=== PATIENT | female | born 1945 | race Asian ===

== ENCOUNTER 2018-09-08 20:43 | Inpatient (IN) | payer MEDICAID, OTHER ==
[~2018-09-08] VITALS: Ht 165.1 cm; Wt 68.5 kg
--- NOTE | 2018-09-08 20:44 | NUR ---
ED Nurse Note: Pt BIBA for episode of syncope that occured at [facility]. Pt upon arrive is A/Ox4 and shakey. VSS. Currently showing no signs of acute distress. Pt states she was walking with family when she began to feel extremely tired and weak, pt sat down for a few minutes and then began to feel episode of syncope. Pt presented with LAC20g, patent and asymptomatic.
[2018-09-08 20:45] VITALS: BP 151/63
[2018-09-08] MEDS ORDERED: LORazepam Inj 2mg/ml 1ml IV ONE (21:00)
[2018-09-08] MEDS ORDERED: Isovue-370 150ml vial INJ PRN (21:00)
--- NOTE | 2018-09-08 21:04 | Emergency Room Report ---
History of Present Illness General Chief Complaint: Syncope Source: Patient Present Illness HPI Patient presents post syncope. Apparently she was walking and started having back pain felt shaky and then started having back of her neck and headache. After that she felt dizzy and felt like she is going to pass out. She did pass out but didn't injure herself is people later down. EMS found her with glucose of 190 and a normal EKG. The patient has a history of diabetes, hypertension and is status post stent placement. She is on Plavix at this time. She's never passed out. She's never had back pain or headache like she does now. She denies fevers or chills. There's no nausea or vomiting. The back pain is somewhat better at this time. Tender upper back. Is not radiating. Patient's stroke screen was negative by the paramedics. She feels thirsty and also shaky at this time. There is no numbness or unilateral weakness. She denies dysuria. Pain denied to punch box tender, but reported to me - mid back and 6/10, aching, somewhat positional, radiating to R posterior neck. The patient complains of bilateral knee pain. It's worse on the right-hand side. She has a little bit of swelling in her lower legs it's worse on the right. She denies any calf pain. She denies having previous clots. PTCA DM HTN Hypercholesterolemia Allergies: Coded Allergies: No Known Allergies (Unverified , 09/08/18) Patient History Past Medical History: see triage record Past Surgical History: PTCA Social History: Denies: smoking, alcohol use, drug use Social History Narrative with daughter Now: No Reviewed Nursing Documentation: PMH: Agreed; PSxH: Agreed Nursing Documentation-PMH Hx Asthma: Yes Hx Diabetes: Yes Hx Cerebrovascular Accident: Yes - CAD and stent at 2007 Review of Systems All Other Systems: negative except mentioned in HPI Physical Exam Vital Signs Date Time Temp Pulse Resp B/P (MAP) Pulse Ox O2 Delivery O2 Flow Rate FiO2 09/08/18 20:44 97.9 93 19 90 Room Air Sp02 EP Interpretation: reviewed, abnormal - Interpreted as low by me General Appearance: well appearing, no apparent distress, GCS 15 Head: normocephalic, atraumatic Eyes: bilateral eye normal inspection, bilateral eye PERRL, bilateral eye EOMI ENT: moist mucus membranes Neck: supple Respiratory: lungs clear, normal breath sounds Cardiovascular #1: regular rate, rhythm Cardiovascular #2: 2+ radial (R) Gastrointestinal: normal inspection, normal bowel sounds, non tender, no mass, non-distended Musculoskeletal: back normal, normal range of motion Neurologic: alert, oriented x3, motor strength/tone normal, DTRs symmetric, sensory intact, cerebellar normal, speech normal, grossly normal Psychiatric: anxious Skin: normal inspection, warm/dry Medical Decision Making Diagnostic Impression: Primary Impression: Syncope Qualified Codes: R55 - Syncope and collapse Additional Impressions: Back pain Qualified Codes: M54.6 - Pain in thoracic spine Renal failure Qualified Codes: N17.9 - Acute kidney failure, unspecified Dehydration ER Course Patient presents post syncopal episode after starting off with back pain. I differential includes acute myocardial infarction, acute coronary syndrome, arrhythmia, aneurysm, vasovagal episode, pulmonary embolus, hypoglycemia amongst others. Patient will be evaluated with EKG, chest x-ray, CT angiogram of chest and abdomen and CT of the head and labs. The patient will be treated with gentle IV hydration and given a small dose of Ativan. EKG no injury. CXR, normal mediastinum. Renal failure (states has had problems with kidneys in the past - not know creatinine). No pain at this time. Equal pulses radial and femoral. No bruit abdomen. Will hold off on CTAs due to renal function. CT head pending. Consider ultrasound abdomen and venous plethysmography. Improved with treatment, pain resolved. Still needs telemetry observation and work up for possible PE or aneurism (though clinically low probability). Relative hypoxia of concern though not tachycardic. Admit telemetry Dr. Wing. Laboratory Tests Test 09/08/18 21:27 White Blood Count 9.9 K/UL (4.8-10.8) Red Blood Count 4.35 M/UL (4.20-5.40) Hemoglobin 12.1 G/DL (12.0-16.0) Hematocrit 35.8 % (37.0-47.0) L Mean Corpuscular Volume 82 FL (80-99) Mean Corpuscular Hemoglobin 27.9 PG (27.0-31.0) Mean Corpuscular Hemoglobin Concent 33.9 G/DL (32.0-36.0) Red Cell Distribution Width 12.5 % (11.6-14.8) Platelet Count 256 K/UL (150-450) Mean Platelet Volume 6.8 FL (6.5-10.1) Neutrophils (%) (Auto) 69.0 % (45.0-75.0) Lymphocytes (%) (Auto) 21.5 % (20.0-45.0) Monocytes (%) (Auto) 6.5 % (1.0-10.0) Eosinophils (%) (Auto) 1.9 % (0.0-3.0) Basophils (%) (Auto) 1.1 % (0.0-2.0) Prothrombin Time 10.1 SEC (9.30-11.50) Prothrombin Time INR 1.0 (0.9-1.1) PTT 26 SEC (23-33) Sodium Level 136 MMOL/L (136-145) Potassium Level 3.9 MMOL/L (3.5-5.1) Chloride Level 100 MMOL/L (98-107) Carbon Dioxide Level 25 MMOL/L (21-32) Anion Gap 12 mmol/L (5-15) Blood Urea Nitrogen 42 mg/dL (7-18) H Creatinine 2.1 MG/DL (0.55-1.30) H Estimate Glomerular Filtration Rate mL/min (>60) Glucose Level 234 MG/DL (74-106) H Calcium Level 8.6 MG/DL (8.5-10.1) Total Bilirubin 0.3 MG/DL (0.2-1.0) Aspartate Amino Transferase (AST) 17 U/L (15-37) Alanine Aminotransferase (ALT) 31 U/L (12-78) Alkaline Phosphatase 113 U/L (46-116) Total Creatine Kinase 109 U/L (26-308) Troponin I 0.000 ng/mL (0.000-0.056) Pro-B-Type Natriuretic Peptide 380 pg/mL (0-125) H Total Protein 8.1 G/DL (6.4-8.2) Albumin 3.4 G/DL (3.4-5.0) Globulin 4.7 g/dL Albumin/Globulin Ratio 0.7 (1.0-2.7) L EKG Diagnostic Results Rate: normal Rhythm: NSR ST Segments: no acute changes Rhythm Strip Diag. Results EP Interpretation: yes Rhythm: NSR, no PVC's, no ectopy Chest X-Ray Diagnostic Results Chest X-Ray Diagnostic Results : Chest X-Ray Ordered: Yes # of Views/Limited/Complete: 1 View Indication: Other EP Interpretation: Yes Interpretation: no consolidation, no effusion, no pneumothorax, other - increased interstitial story and slight increased cor Impression: Other Electronically Signed by: Electronically signed by Jonathan Flores MD CT/MRI/US Diagnostic Results CT/MRI/US Diagnostic Results : Imaging Test Ordered: head Impression involutional changes Last Vital Signs Date Time Temp Pulse Resp B/P (MAP) Pulse Ox O2 Delivery O2 Flow Rate FiO2 09/09/18 17:22 82 122/84 09/09/18 16:00 98.2 20 95 09/09/18 09:00 Room Air Status: improved Disposition: ADMITTED INPATIENT Condition: Serious Jonathan Flores MD September 08, 2018 21:04
[2018-09-08] MEDS: Sodium Chloride 550 ML IV SCH (21:16)
[2018-09-08 22:08] LABS: BASOPHILS % (AUTO) 1.1 % (0.0-2.0); EOSINOPHILS % (AUTO) 1.9 % (0.0-3.0); HEMATOCRIT 35.8 % (37.0-47.0); HEMOGLOBIN 12.1 G/DL (12.0-16.0); LYMPHOCYTES % (AUTO) 21.5 % (20.0-45.0); MEAN CORPUSCULAR VOLUME 82 FL (80-99); MONOCYTES % (AUTO) 6.5 % (1.0-10.0); PLATELET COUNT 256 K/UL (150-450); RED BLOOD COUNT 4.35 M/UL (4.20-5.40); RED CELL DISTRIBUTION WIDTH 12.5 % (11.6-14.8); WHITE BLOOD COUNT 9.9 K/UL (4.8-10.8)
--- NOTE | 2018-09-08 22:30 | NUR ---
ED Nurse Note: Pt resting comfortably. Showing no signs of acute distress. Son @ bedside.
[2018-09-08 22:40] LABS: ANION GAP 12 mmol/L (5-15); BLOOD UREA NITROGEN 42 mg/dL (7-18); CALCIUM 8.6 MG/DL (8.5-10.1); CARBON DIOXIDE 25 MMOL/L (21-32); CHLORIDE 100 MMOL/L (98-107); CREATININE 2.1 MG/DL (0.55-1.30); POTASSIUM 3.9 MMOL/L (3.5-5.1); SODIUM 136 MMOL/L (136-145)
[2018-09-08 22:52] LABS: ALANINE AMINOTRANSFERASE 31 U/L (12-78); ALBUMIN 3.4 G/DL (3.4-5.0); ALBUMIN/GLOBULIN RATIO 0.7 (1.0-2.7); ALKALINE PHOSPHATASE 113 U/L (46-116); ASPARTATE AMINO TRANSFERASE 17 U/L (15-37); BILIRUBIN,TOTAL 0.3 MG/DL (0.2-1.0); CREATINE KINASE 109 U/L (26-308)
[2018-09-08 23:00] VITALS: BP 154/88
--- NOTE | 2018-09-08 23:03 | NUR ---
ED Nurse Note: Pt taken to CT.
--- NOTE | 2018-09-08 23:21 | NUR ---
ED Nurse Note: Pt returned back from CT.
[2018-09-09] VITALS (9 sets, daily range): BP systolic 122–198; BP diastolic 62–89
[2018-09-09] MEDS: Sodium Chloride 550 ML IV SCH (00:29)
--- NOTE | 2018-09-09 00:50 | NUR ---
NURSE NOTES: Received a phone report from WILLIAM Arce.Patient in ER in a stable condition,SR on digital content specialist,no c/o pain,no respiratory distress noted,tolerated r/air well,IV asymptomatic,intact on Lm AC 20G SL.Son at a bedside .Waiting for patient to come on a floor.
--- NOTE | 2018-09-09 01:00 | NUR ---
NURSE NOTES: Patient brought to the floor by sherly with assistance,pt A&Ox4,no c/o pain,no respiratory distress at this moment, belongings list signed,skin intact,bed secured,call light within a reach,will continue to monitor patient.
--- NOTE | 2018-09-09 01:00 | NUR ---
ED Nurse Note: Pt transferred to telemetry unit. Report given to WILLIAM Maguire. Pt A/O4, showing no signs of acute distress. All belongings taken with patient along with belongings list. Son at bedside. pt transferred while connected to monitor, with IV site intact and patent, and accompanied by two ER nurses.
[2018-09-09] MEDS ORDERED: Morphine Sulfate 2mg/ml Inj(IV/IM USE ONLY) IVP PRN (02:15)
[2018-09-09] MEDS ORDERED: D5 1/2NS 1,000 ML IV SCH ×2 (02:15→11:30)
[2018-09-09 04:54] LABS: EOSINOPHILS % (AUTO) 1.6 % (0.0-3.0); HEMATOCRIT 33.5 % (37.0-47.0); HEMOGLOBIN 11.2 G/DL (12.0-16.0); LYMPHOCYTES % (AUTO) 23.2 % (20.0-45.0); MEAN CORPUSCULAR VOLUME 82 FL (80-99); MONOCYTES % (AUTO) 5.4 % (1.0-10.0); NEUTROPHILS % (AUTO) 68.9 % (45.0-75.0); PLATELET COUNT 233 K/UL (150-450); RED BLOOD COUNT 4.08 M/UL (4.20-5.40); RED CELL DISTRIBUTION WIDTH 12.9 % (11.6-14.8); WHITE BLOOD COUNT 9.8 K/UL (4.8-10.8)
[2018-09-09 05:33] LABS: ANION GAP 11 mmol/L (5-15); BLOOD UREA NITROGEN 42 mg/dL (7-18); CALCIUM 8.2 MG/DL (8.5-10.1); CARBON DIOXIDE 23 MMOL/L (21-32); CHLORIDE 104 MMOL/L (98-107); CREATININE 1.8 MG/DL (0.55-1.30); POTASSIUM 3.9 MMOL/L (3.5-5.1); SODIUM 138 MMOL/L (136-145)
[2018-09-09] MEDS: NovoLOG Insulin Flexpen SUBQ SCH ×4 (06:20→20:52)
--- NOTE | 2018-09-09 07:02 | NUR ---
HAND-OFF: Report given to WILLIAM Gay.Patient stable,no respiratory distress,no c/o pain.
--- NOTE | 2018-09-09 07:07 | NUR ---
NURSE NOTES: Received report from WILLIAM Maguire. Patient in bed resting, no active s/s cardiac, respiratory distress noticed at this time, denies pain at this time. Patient on room air, AOx4, SR with HR 83. IV on left AC 20G, Left FA 22G, asymptomatic, patent, intact, IV fluid running at prescribed rate. Bed in lowest position, side rails upx3, call light within reach, bed alarm on. Will continue to monitor.
[2018-09-09] MEDS: Losartan 50mg tab ORAL SCH (08:48)
[2018-09-09] MEDS: Heparin 5000 units/ml inj SUBQ SCH ×2 (08:49→20:56)
--- NOTE | 2018-09-09 09:05 | NUR ---
CASE MANAGEMENT:REVIEW 72 YR OLD FEMALE BIBA FROM [facility] CC: PASSED OUT FOR 2 MINUTES SI; SYNCOPE. RENAL FAILURE 97.8 93 19 151/63 90% ON RA BUN+42 CR+2.1 IS: 500CC NS BOLUS IV ATIVAN CT HEAD CTA CHEST/ABD/PELVIS CXR : TO TELEMETRY PLAN: NEURO CHECKS Q4HRS
--- NOTE | 2018-09-09 09:37 | NUR ---
*-* NO INSURANCE INFORMATION IN THE BAR UNABLE TO SEND CLINICALS AND REVIEWS *-*
--- NOTE | 2018-09-09 09:55 | NUR ---
NURSE NOTES: Paged Dr. Wing regarding CT angiogram, awaiting for callback.
--- NOTE | 2018-09-09 10:09 | Diagnostic Imaging Report ---
Indication: Syncopal Technique: Contiguous 5 mm thick transaxial imaging of the head obtained in a Siemens Sensation [address] scanner. Soft tissue and bone windows generated. Automatic Exposure Control was utilized. Total Dose length Product (DLP): 1347.[address] Dose Index Volume (CTDIvol): 70.38 mGy Comparison: none Findings: There is mild prominence of the ventricles, basal cisterns, and cerebral sulci consistent with atrophy. Mild, nonspecific, white matter hypoattenuation is noted throughout the brain consistent with chronic small vessel disease. There is no midline shift, edema, acute hemorrhage, mass effect, or abnormal extra-axial fluid collections. Bones and extra osseous soft tissues are unremarkable. Impression: No acute intracranial bleed, mass effect or edema. Mild atrophy of the brain. Nonspecific white matter hypoattenuation probably due to chronic small vessel disease. The CT scanner at [facility] is accredited by the [employer] [employer] and the scans are performed using dose optimization techniques as appropriate to a performed exam including Automatic Exposure control.
[2018-09-09 11:04] LABS: PHOSPHORUS 4.2 MG/DL (2.5-4.9)
--- NOTE | 2018-09-09 11:11 | NUR ---
NURSE NOTES: Dr. Jansen at the bedside, asked regarding CT angiogram with BUN 42, creatinine 1.8, per Dr. Jansen, increase IV fluid from 60ml/h to 100ml/h and see BUN, creatinine level tomorrow before CT angiogram. Order noted, entered, carried out.
--- NOTE | 2018-09-09 11:49 | Diagnostic Imaging Report ---
Indication: Dyspnea Comparison: None A single view chest radiograph was obtained. Findings: Interstitial densities are prominent bilaterally within the lungs. Pulmonary vascularity is also mildly prominent and heart is mildly enlarged. Bones are osteopenic. No pleural effusion seen. IMPRESSION: Suspected mild CHF. Correlate clinically
--- NOTE | 2018-09-09 12:05 | Consultation ---
Consult Note Consult Note i was asked to evaluate the patient at the request of Dr Wing for renal failure patient interviewed at presence of RN examined data reviewed Chief Complaint: Syncope HPI Patient presents post syncope. Apparently she was walking and started having back pain felt shaky and then started having back of her neck and headache. After that she felt dizzy and felt like she is going to pass out. She did pass out but didn't injure herself is people later down. EMS found her with glucose of 190 and a normal EKG. The patient has a history of diabetes, hypertension and is status post stent placement. She is on Plavix at this time. She's never passed out. She's never had back pain or headache like she does now. She denies fevers or chills. There's no nausea or vomiting. The back pain is somewhat better at this time. Tender upper back. Is not radiating. Patient's stroke screen was negative by the paramedics. She feels thirsty and also shaky at this time. There is no numbness or unilateral weakness. She denies dysuria. The patient complains of bilateral knee pain. It's worse on the right-hand side. She has a little bit of swelling in her lower legs it's worse on the right. She denies any calf pain. She denies having previous clots. No Known Allergies (Unverified , 09/08/18) Past Medical History: see triage record Past Surgical History: PTCA Hx Asthma: Yes Hx Diabetes: Yes Hx Cerebrovascular Accident: Yes - CAD and stent at 2007 . Assessment/Plan Renal failure- acute - ? underlying CKD DM OOC CAD asthma adjust bp meds hydrate UA 2D echo continue rest Pacheco Jansen MD September 09, 2018 12:05
--- NOTE | 2018-09-09 12:07 | NUR ---
NURSE NOTES: Dr. Wing at the nursing station, clarified if MD still want to continue order CT angiogram of chest and abdomen which hasn't been done in ED yesterday. Per Dr. Wing, call ED doctor Mark to clarify order. Called Dr. Flores , unable to reach MD. CN made aware, breakfast supervisor made aware. Will continue to monitor.
[2018-09-09] MEDS: Docusate 100mg cap ORAL SCH ×2 (13:00→17:25)
--- NOTE | 2018-09-09 13:30 | NUR ---
Spoke to Dr. Walters. Ordered to discontinue CT with angio. Addendum: 09/09/18 at 1348 by Kumar Ren RN NURSE NOTES:
[2018-09-09] MEDS: HydrALAZINE 25mg tab ORAL SCH ×2 (13:39→21:31)
[2018-09-09 14:56] LABS: APPEARANCE,URINE CLEAR; BILIRUBIN, URINE NEGATIVE (NEGATIVE); COLOR,URINE PALE YELLOW; GLUCOSE, URINE (UA) 1+ (NEGATIVE); KETONES,URINE NEGATIVE (NEGATIVE); LEUKOCYTE ESTERASE ,URINE NEGATIVE (NEGATIVE); NITRITE,URINE NEGATIVE (NEGATIVE); PH,URINE 6 (4.5-8.0); PROTEIN,URINE 3+ (NEGATIVE); UROBILINOGEN,URINE NORMAL MG/DL (0.0-1.0)
[2018-09-09] MEDS ORDERED: D5 1/2NS 1000ml IV ONE (16:07)
[2018-09-09] MEDS ORDERED: Tubing IV Secondary IV ONE (16:07)
--- NOTE | 2018-09-09 16:18 | NUR ---
NURSE NOTES: Paged Dr. Wing regarding 6 beats of VTACH, awaiting for callback. Will continue to monitor. Assessed patient, AOx4, denies chest pain, SR with 78 at this time. Will continue to monitor.
--- NOTE | 2018-09-09 16:35 | NUR ---
NURSE NOTES: Left message to Dr. Schreiber regarding 6 beats of VTACH, made aware patient denies chest pain, AOX4, SR at this time.
--- NOTE | 2018-09-09 17:55 | Consultation ---
History of Present Illness General Date patient seen: September 09, 2018 Time patient seen: 17:51 Chief Complaint: Syncope Present Illness HPI Pt BIBA for episode of syncope that occurred at [facility]. patient is 72 year old. no acute distress, no chest pain, no palpitations. She felt tired and weak. on telemetry she had a run of NSVT 6 beats. No hx of syncope. No fevers. No hx of CVA. CXR; Suspected mild CHF. CT brain No acute intracranial bleed, mass effect or edema. Troponin negative, EKG NSR, creatinine elevated, HgA1c elevated Allergies: Coded Allergies: No Known Allergies (Unverified , 09/08/18) Patient History Healthcare decision maker Resuscitation status Full Code Advanced Directive on File No Review of Systems Constitutional: Reports: malaise, weakness Eye: Reports: no symptoms ENT: Reports: no symptoms Respiratory: Reports: no symptoms Cardiovascular: Reports: syncope Gastrointestinal: Reports: no symptoms Genitourinary: Reports: no symptoms Musculoskeletal: Reports: no symptoms Skin: Reports: no symptoms Psychiatric: Reports: no symptoms Neurological: Reports: no symptoms Endocrine: Reports: no symptoms Hematologic/Lymphatic: Reports: no symptoms Physical Exam General Appearance: no apparent distress, alert Lines, tubes and drains: peripheral HEENT: normocephalic, atraumatic, anicteric, PERRL Neck: non-tender, normal alignment Respiratory/Chest: chest wall non-tender, lungs clear Cardiovascular/Chest: normal peripheral pulses, normal rate, regular rhythm Abdomen: normal bowel sounds, non tender, soft, no organomegaly, no mass Extremities: normal range of motion, non-tender, normal inspection Skin Exam: normal pigmentation, warm/dry, cyanotic Neurologic: library manager II-XII grossly normal, no motor/sensory deficits Last 24 Hour Vital Signs Date Time Temp Pulse Resp B/P (MAP) Pulse Ox O2 Delivery O2 Flow Rate FiO2 09/09/18 17:22 82 122/84 09/09/18 16:00 98.2 85 20 122/84 (97) 95 09/09/18 16:00 82 09/09/18 13:39 171/80 09/09/18 12:00 99.1 86 20 171/80 (110) 97 09/09/18 12:00 80 09/09/18 09:00 Room Air 09/09/18 08:48 164/68 09/09/18 08:00 97.2 76 16 164/68 (100) 99 09/09/18 08:00 92 09/09/18 04:00 97.8 83 20 162/62 (95) 96 09/09/18 03:44 79 09/09/18 01:42 Room Air 09/09/18 01:34 76 09/09/18 01:00 98.6 79 19 154/63 97 Room Air 09/09/18 01:00 98.1 76 21 155/69 97 Room Air 09/08/18 23:00 97.9 82 19 154/88 96 Room Air 09/08/18 20:45 97.9 94 19 151/63 94 Room Air 09/08/18 20:44 97.9 93 19 90 Room Air Intake and Output 09/08/18 09/09/18 19:00 07:00 Intake Total 150 ml Balance 150 ml IV Total 150 ml # Voids 3 Laboratory Tests Test 09/08/18 21:27 09/09/18 04:00 09/09/18 12:30 09/09/18 14:35 White Blood Count 9.9 K/UL (4.8-10.8) 9.8 K/UL (4.8-10.8) Red Blood Count 4.35 M/UL (4.20-5.40) 4.08 M/UL (4.20-5.40) L Hemoglobin 12.1 G/DL (12.0-16.0) 11.2 G/DL (12.0-16.0) L Hematocrit 35.8 % (37.0-47.0) L 33.5 % (37.0-47.0) L Mean Corpuscular Volume 82 FL (80-99) 82 FL (80-99) Mean Corpuscular Hemoglobin 27.9 PG (27.0-31.0) 27.6 PG (27.0-31.0) Mean Corpuscular Hemoglobin Concent 33.9 G/DL (32.0-36.0) 33.5 G/DL (32.0-36.0) Red Cell Distribution Width 12.5 % (11.6-14.8) 12.9 % (11.6-14.8) Platelet Count 256 K/UL (150-450) 233 K/UL (150-450) Mean Platelet Volume 6.8 FL (6.5-10.1) 7.2 FL (6.5-10.1) Neutrophils (%) (Auto) 69.0 % (45.0-75.0) 68.9 % (45.0-75.0) Lymphocytes (%) (Auto) 21.5 % (20.0-45.0) 23.2 % (20.0-45.0) Monocytes (%) (Auto) 6.5 % (1.0-10.0) 5.4 % (1.0-10.0) Eosinophils (%) (Auto) 1.9 % (0.0-3.0) 1.6 % (0.0-3.0) Basophils (%) (Auto) 1.1 % (0.0-2.0) 1.0 % (0.0-2.0) Prothrombin Time 10.1 SEC (9.30-11.50) Prothromb Time International Ratio 1.0 (0.9-1.1) Activated Partial Thromboplast Time 26 SEC (23-33) Sodium Level 136 MMOL/L (136-145) 138 MMOL/L (136-145) Potassium Level 3.9 MMOL/L (3.5-5.1) 3.9 MMOL/L (3.5-5.1) Chloride Level 100 MMOL/L (98-107) 104 MMOL/L (98-107) Carbon Dioxide Level 25 MMOL/L (21-32) 23 MMOL/L (21-32) Anion Gap 12 mmol/L (5-15) 11 mmol/L (5-15) Blood Urea Nitrogen 42 mg/dL (7-18) H 42 mg/dL (7-18) H Creatinine 2.1 MG/DL (0.55-1.30) H 1.8 MG/DL (0.55-1.30) H Estimat Glomerular Filtration Rate mL/min (>60) mL/min (>60) Glucose Level 234 MG/DL (74-106) H 178 MG/DL (74-106) H Calcium Level 8.6 MG/DL (8.5-10.1) 8.2 MG/DL (8.5-10.1) L Total Bilirubin 0.3 MG/DL (0.2-1.0) Aspartate Amino Transf (AST/SGOT) 17 U/L (15-37) Alanine Aminotransferase (ALT/SGPT) 31 U/L (12-78) Alkaline Phosphatase 113 U/L (46-116) Total Creatine Kinase 109 U/L (26-308) Troponin I 0.000 ng/mL (0.000-0.056) 0.000 ng/mL (0.000-0.056) 0.002 ng/mL (0.000-0.056) Pro-B-Type Natriuretic Peptide 380 pg/mL (0-125) H Total Protein 8.1 G/DL (6.4-8.2) Albumin 3.4 G/DL (3.4-5.0) Globulin 4.7 g/dL Albumin/Globulin Ratio 0.7 (1.0-2.7) L Hemoglobin A1c 9.1 % (4.3-6.0) H Uric Acid 11.2 MG/DL (2.6-7.2) H Phosphorus Level 4.2 MG/DL (2.5-4.9) Magnesium Level 1.9 MG/DL (1.8-2.4) Thyroid Stimulating Hormone (TSH) 1.303 uiU/mL (0.358-3.740) Urine Color Pale yellow Urine Appearance Clear Urine pH 6 (4.5-8.0) Urine Specific [place] 1.005 (1.005-1.035) Urine Protein 3+ (NEGATIVE) H Urine Glucose (UA) 1+ (NEGATIVE) H Urine Ketones Negative (NEGATIVE) Urine Blood Negative (NEGATIVE) Urine Nitrite Negative (NEGATIVE) Urine Bilirubin Negative (NEGATIVE) Urine Urobilinogen Normal MG/DL (0.0-1.0) Urine Leukocyte Esterase Negative (NEGATIVE) Urine RBC 0 /HPF (0 - 2) Urine WBC 0 /HPF (0 - 2) Urine Squamous Epithelial Cells Occasional /LPF Urine Bacteria None /HPF (NONE) Urine Random Sodium 67 mmol/L (20-110) Height (Feet): 5 Height (Inches): 5.00 Weight (Pounds): 157 Medications Current Medications Medications (Trade) Dose Ordered Sig/Nichole Route PRN Reason Start Time Stop Time Status Last Admin Dose Admin Acetaminophen (Tylenol) 650 mg Q6H PRN ORAL Mild Pain/Temp > 100.5 09/09/18 02:15 10/09/18 02:14 Amlodipine Besylate (Norvasc) 5 mg BID ORAL 09/09/18 18:00 10/09/18 20:59 09/09/18 17:22 Clopidogrel Bisulfate (Plavix) 75 mg DAILY ORAL 09/09/18 09:00 10/09/18 08:59 09/09/18 08:49 Dextrose (Dextrose 50%) 25 ml Q30M PRN IV Hypoglycemia 09/09/18 02:15 10/09/18 02:14 Dextrose (Dextrose 50%) 50 ml Q30M PRN IV Hypoglycemia 09/09/18 02:15 10/09/18 02:14 Docusate Sodium (Colace) 100 mg THREE TIMES A DAY ORAL 09/09/18 13:00 10/09/18 12:59 Heparin Sodium (Porcine) (Heparin 5000 units/ml) 5,000 units EVERY 12 HOURS SUBQ 09/09/18 09:00 10/09/18 08:59 Hydralazine HCl (Apresoline) 25 mg Q8HR ORAL 09/09/18 14:00 10/09/18 13:59 09/09/18 13:39 Insulin Aspart (NovoLOG) BEFORE MEALS AND HS SUBQ 09/09/18 06:30 10/09/18 06:29 09/09/18 17:25 Losartan Potassium (Cozaar) 50 mg DAILY ORAL 09/09/18 09:00 10/09/18 08:59 09/09/18 08:48 Morphine Sulfate (Morphine Sulfate) 2 mg Q4H PRN IVP For Pain 09/09/18 02:15 09/16/18 02:14 Pantoprazole (Protonix) 40 mg EVERY 12 HOURS ORAL 09/09/18 12:15 10/09/18 12:14 Sodium Chloride 1,000 ml @ 75 mls/hr [id number] IV 09/09/18 12:15 10/09/18 12:14 09/09/18 12:58 Assessment/Plan Status: stable Assessment/Plan: Assessment Hypertension Diabetes CKD/ONEIL Syncope Non sustained ventricular tachycardia Plan: Telemetry Echocardiogram Replete electrolytes Aggressive glucose control IV fluids Stress test to evaluate for ischemia Dr. Schreiber to resume care tomorrow Jonathan Gutierrez MD September 09, 2018 17:55
--- NOTE | 2018-09-09 18:06 | NUR ---
NURSE NOTES: Per Dr. Schreiber, troponin tomorrow morning, 2D echo. Order noted, entered, carried out.
--- NOTE | 2018-09-09 19:19 | NUR ---
HAND-OFF: Report given to WILLIAM Jarrell.
--- NOTE | 2018-09-09 19:20 | NUR ---
NURSE NOTES: Report received from WILLIAM Gay. Observed pt lying on the bed. Denies any pain at this time. A/O x4. SR with cardiac rehabilitation program director. On room air with no signs of sob. IV on L FA 22G, running NS at 75cc/hr. Bed in the lowest position. Side rails up x2. Will continue to monitor.
--- NOTE | 2018-09-09 19:31 | Consultation ---
History of Present Illness General Date patient seen: September 09, 2018 Chief Complaint: Syncope Referring physician: Dr. Kunal Wing Present Illness HPI Sneha Roy is a 72 year old woman with PMH of HTN, and diabetes who was BIBA for episode of syncope that occurred at [facility] on September 09, 2018 She reports feeling tired and weak, noticing he field of vision narrowing and then waking up in the hospital. It was reported that once on telemetry, she had a run of NSVT 6 beats. She now denies any headache, dizziness, loss of vision, new focal weakness, nausea, chest pain or paresthesias. At baseline she reports having a bad right knee that she uses a cane for extra support for while walking. Allergies: Coded Allergies: PENICILLINS (Verified Allergy, Unknown, 09/10/18) Patient History History Provided By: Patient, Medical Record Healthcare decision maker Resuscitation status Full Code Advanced Directive on File No Past Medical/Surgical History Past Medical/Surgical History: (1) Diabetic nephropathy (2) CAD (coronary artery disease) (3) Diabetes mellitus (4) History of hypertension Review of Systems Constitutional: Denies: no symptoms, see HPI, chills, sweats, fever, malaise, weakness, other Eye: Denies: no symptoms, see HPI, eye pain, blurred vision, tearing, double vision, nose pain, nose congestion, acuity changes, discharge, other ENT: Denies: no symptoms, see HPI, ear pain, ear discharge, nose pain, nose congestion, throat pain, throat swelling, mouth pain, hearing loss, nasal discharge, other Respiratory: Denies: no symptoms, see HPI, cough, orthopnea, shortness of breath, stridor, wheezing, GERMAN, sputum, other Cardiovascular: Denies: no symptoms, see HPI, chest pain, edema, palpitations, syncope, PND, other Gastrointestinal: Denies: no symptoms, see HPI, abdominal pain, constipation, diarrhea, nausea, vomiting, melena, hematemesis, other Genitourinary: Denies: no symptoms, see HPI, discharge, dysuria, frequency, hematuria, pain, retention, incontinence, urgency, vag bleed/dc, other Musculoskeletal: Denies: no symptoms, see HPI, back pain, gout, joint pain, joint swelling, muscle pain, muscle stiffness, other Skin: Denies: no symptoms, see HPI, rash, change in color, change in hair/nails , dryness, lesions, other Psychiatric: Denies: no symptoms, see HPI, prior hx, anxiety, depressed feelings, emotional problems, SI, HI, hallucinations, other Neurological: Denies: no symptoms, see HPI, headache, numbness, paresthesia, seizure, tingling, tremors, focal weakness, syncope, dizziness, other Endocrine: Denies: no symptoms, see HPI, excessive sweating, flushing, intolerance to temperature, increased thirst, increased urine, unexplained weight loss, other Hematologic/Lymphatic: Denies: no symptoms, see HPI, anemia, blood clots, easy bleeding, easy bruising, swollen glands, diathesis, other Physical Exam General Appearance: WD/WN, no apparent distress, alert Lines, tubes and drains: peripheral HEENT: normocephalic, atraumatic, anicteric, mucous membranes moist, PERRL, EOMI, pharynx normal, supple, no JVD Neck: non-tender, normal alignment, normal inspection Respiratory/Chest: normal breath sounds, no respiratory distress, no accessory muscle use Cardiovascular/Chest: normal peripheral pulses Extremities: normal range of motion, non-tender, normal inspection, no calf tenderness, normal capillary refill, non-pitting, no cyanosis Skin Exam: normal pigmentation, warm/dry 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, no motor/sensory deficits, alert, oriented x 3, responsive, normal mood/affect, no Babinski Musculoskeletal: normal muscle bulk, no effusion Last 24 Hour Vital Signs Date Time Temp Pulse Resp B/P (MAP) Pulse Ox O2 Delivery O2 Flow Rate FiO2 09/09/18 17:22 82 122/84 09/09/18 16:00 98.2 85 20 122/84 (97) 95 09/09/18 16:00 82 09/09/18 13:39 171/80 09/09/18 12:00 99.1 86 20 171/80 (110) 97 09/09/18 12:00 80 09/09/18 09:00 Room Air 09/09/18 08:48 164/68 09/09/18 08:00 97.2 76 16 164/68 (100) 99 09/09/18 08:00 92 09/09/18 04:00 97.8 83 20 162/62 (95) 96 09/09/18 03:44 79 09/09/18 01:42 Room Air 09/09/18 01:34 76 09/09/18 01:00 98.6 79 19 154/63 97 Room Air 09/09/18 01:00 98.1 76 21 155/69 97 Room Air 09/08/18 23:00 97.9 82 19 154/88 96 Room Air 09/08/18 20:45 97.9 94 19 151/63 94 Room Air 09/08/18 20:44 97.9 93 19 90 Room Air Intake and Output 09/08/18 09/09/18 19:00 07:00 Intake Total 150 ml Balance 150 ml IV Total 150 ml # Voids 3 Laboratory Tests Test 09/08/18 21:27 09/09/18 04:00 09/09/18 12:30 09/09/18 14:35 White Blood Count 9.9 K/UL (4.8-10.8) 9.8 K/UL (4.8-10.8) Red Blood Count 4.35 M/UL (4.20-5.40) 4.08 M/UL (4.20-5.40) L Hemoglobin 12.1 G/DL (12.0-16.0) 11.2 G/DL (12.0-16.0) L Hematocrit 35.8 % (37.0-47.0) L 33.5 % (37.0-47.0) L Mean Corpuscular Volume 82 FL (80-99) 82 FL (80-99) Mean Corpuscular Hemoglobin 27.9 PG (27.0-31.0) 27.6 PG (27.0-31.0) Mean Corpuscular Hemoglobin Concent 33.9 G/DL (32.0-36.0) 33.5 G/DL (32.0-36.0) Red Cell Distribution Width 12.5 % (11.6-14.8) 12.9 % (11.6-14.8) Platelet Count 256 K/UL (150-450) 233 K/UL (150-450) Mean Platelet Volume 6.8 FL (6.5-10.1) 7.2 FL (6.5-10.1) Neutrophils (%) (Auto) 69.0 % (45.0-75.0) 68.9 % (45.0-75.0) Lymphocytes (%) (Auto) 21.5 % (20.0-45.0) 23.2 % (20.0-45.0) Monocytes (%) (Auto) 6.5 % (1.0-10.0) 5.4 % (1.0-10.0) Eosinophils (%) (Auto) 1.9 % (0.0-3.0) 1.6 % (0.0-3.0) Basophils (%) (Auto) 1.1 % (0.0-2.0) 1.0 % (0.0-2.0) Prothrombin Time 10.1 SEC (9.30-11.50) Prothromb Time International Ratio 1.0 (0.9-1.1) Activated Partial Thromboplast Time 26 SEC (23-33) Sodium Level 136 MMOL/L (136-145) 138 MMOL/L (136-145) Potassium Level 3.9 MMOL/L (3.5-5.1) 3.9 MMOL/L (3.5-5.1) Chloride Level 100 MMOL/L (98-107) 104 MMOL/L (98-107) Carbon Dioxide Level 25 MMOL/L (21-32) 23 MMOL/L (21-32) Anion Gap 12 mmol/L (5-15) 11 mmol/L (5-15) Blood Urea Nitrogen 42 mg/dL (7-18) H 42 mg/dL (7-18) H Creatinine 2.1 MG/DL (0.55-1.30) H 1.8 MG/DL (0.55-1.30) H Estimat Glomerular Filtration Rate mL/min (>60) mL/min (>60) Glucose Level 234 MG/DL (74-106) H 178 MG/DL (74-106) H Calcium Level 8.6 MG/DL (8.5-10.1) 8.2 MG/DL (8.5-10.1) L Total Bilirubin 0.3 MG/DL (0.2-1.0) Aspartate Amino Transf (AST/SGOT) 17 U/L (15-37) Alanine Aminotransferase (ALT/SGPT) 31 U/L (12-78) Alkaline Phosphatase 113 U/L (46-116) Total Creatine Kinase 109 U/L (26-308) Troponin I 0.000 ng/mL (0.000-0.056) 0.000 ng/mL (0.000-0.056) 0.002 ng/mL (0.000-0.056) Pro-B-Type Natriuretic Peptide 380 pg/mL (0-125) H Total Protein 8.1 G/DL (6.4-8.2) Albumin 3.4 G/DL (3.4-5.0) Globulin 4.7 g/dL Albumin/Globulin Ratio 0.7 (1.0-2.7) L Hemoglobin A1c 9.1 % (4.3-6.0) H Uric Acid 11.2 MG/DL (2.6-7.2) H Phosphorus Level 4.2 MG/DL (2.5-4.9) Magnesium Level 1.9 MG/DL (1.8-2.4) Thyroid Stimulating Hormone (TSH) 1.303 uiU/mL (0.358-3.740) Urine Color Pale yellow Urine Appearance Clear Urine pH 6 (4.5-8.0) Urine Specific [place] 1.005 (1.005-1.035) Urine Protein 3+ (NEGATIVE) H Urine Glucose (UA) 1+ (NEGATIVE) H Urine Ketones Negative (NEGATIVE) Urine Blood Negative (NEGATIVE) Urine Nitrite Negative (NEGATIVE) Urine Bilirubin Negative (NEGATIVE) Urine Urobilinogen Normal MG/DL (0.0-1.0) Urine Leukocyte Esterase Negative (NEGATIVE) Urine RBC 0 /HPF (0 - 2) Urine WBC 0 /HPF (0 - 2) Urine Squamous Epithelial Cells Occasional /LPF Urine Bacteria None /HPF (NONE) Urine Random Sodium 67 mmol/L (20-110) Height (Feet): 5 Height (Inches): 5.00 Weight (Pounds): 157 Medications Current Medications Medications (Trade) Dose Ordered Sig/Nichole Route PRN Reason Start Time Stop Time Status Last Admin Dose Admin Acetaminophen (Tylenol) 650 mg Q6H PRN ORAL Mild Pain/Temp > 100.5 09/09/18 02:15 10/09/18 02:14 Amlodipine Besylate (Norvasc) 5 mg BID ORAL 09/09/18 18:00 10/09/18 20:59 09/09/18 17:22 Clopidogrel Bisulfate (Plavix) 75 mg DAILY ORAL 09/09/18 09:00 10/09/18 08:59 09/09/18 08:49 Dextrose (Dextrose 50%) 25 ml Q30M PRN IV Hypoglycemia 09/09/18 02:15 10/09/18 02:14 Dextrose (Dextrose 50%) 50 ml Q30M PRN IV Hypoglycemia 09/09/18 02:15 10/09/18 02:14 Docusate Sodium (Colace) 100 mg THREE TIMES A DAY ORAL 09/09/18 13:00 10/09/18 12:59 Heparin Sodium (Porcine) (Heparin 5000 units/ml) 5,000 units EVERY 12 HOURS SUBQ 09/09/18 09:00 10/09/18 08:59 Hydralazine HCl (Apresoline) 25 mg Q8HR ORAL 09/09/18 14:00 10/09/18 13:59 09/09/18 13:39 Insulin Aspart (NovoLOG) BEFORE MEALS AND HS SUBQ 09/09/18 06:30 10/09/18 06:29 09/09/18 17:25 Losartan Potassium (Cozaar) 50 mg DAILY ORAL 09/09/18 09:00 10/09/18 08:59 09/09/18 08:48 Morphine Sulfate (Morphine Sulfate) 2 mg Q4H PRN IVP For Pain 09/09/18 02:15 09/16/18 02:14 Pantoprazole (Protonix) 40 mg EVERY 12 HOURS ORAL 09/09/18 12:15 10/09/18 12:14 Sodium Chloride 1,000 ml @ 75 mls/hr [id number] IV 09/09/18 12:15 10/09/18 12:14 09/09/18 12:58 Assessment/Plan Problem List: (1) Diabetes mellitus ICD Codes: E11.9 - Type 2 diabetes mellitus without complications SNOMED: 58846586 (2) History of hypertension ICD Codes: Z86.79 - Personal history of other diseases of the circulatory system SNOMED: 958415365 (3) Acute encephalopathy ICD Codes: G93.40 - Encephalopathy, unspecified SNOMED: 28582483, 436101011 (4) Syncope ICD Codes: R55 - Syncope and collapse SNOMED: 603182891 Qualifiers: Qualified Codes: R55 - Syncope and collapse (5) Diabetic nephropathy ICD Codes: E11.21 - Type 2 diabetes mellitus with diabetic nephropathy SNOMED: 890357230 (6) Hypomagnesemia with secondary hypocalcemia Assessment & Plan: Correct / Replete lytes ICD Codes: E83.42 - Hypomagnesemia; E83.51 - Hypocalcemia SNOMED: 959231559 Status: stable Assessment/Plan: MRI Brain to rule out Acute CVA Q 4 hour neuro obs Na 135-145 Maintain normoglycemia with ISS SBP< 140 Check TSH Emi Anthony N.P. September 09, 2018 19:31
--- NOTE | 2018-09-09 19:45 | History and Physical Report ---
DATE OF ADMISSION: 09/08/2018 CONSULTANTS: 1. Donald Walters M.D. 2. Pacheco Jansen M.D. 3. Rogers Schreiber M.D. 4. Bear Harvey M.D. CHIEF COMPLAINT: Syncope, renal failure, and lower extremity pain. BRIEF HISTORY: This is a 72-year-old female, who was sitting apparently had a syncopal episode witnessed by family. The patient was brought to [facility], diagnosed with the above, and admitted to telemetry for further care. Currently, calm, in bed, no complaint. REVIEW OF SYSTEMS: No chest pain. No shortness of breath. No nausea, vomiting, or diarrhea. PAST MEDICAL HISTORY: Includes renal failure, NE, lower extremity pain. PAST SURGICAL HISTORY: Heart stent. MEDICATIONS: Include terazosin, Norvasc, clopidogrel, losartan, heparin, morphine, Tylenol, and insulin. ALLERGIES: She says penicillin. SOCIAL HISTORY: Positive smoking. No alcohol. No intravenous drug abuse. FAMILY HISTORY: Noncontributory. PHYSICAL EXAMINATION: GENERAL: Calm in bed, oriented x2, in no acute distress. VITAL SIGNS: Temperature is 97 degrees, pulse 76, respirations 16, and blood pressure 164/68. CARDIOVASCULAR: No murmurs. LUNGS: Distant and clear. ABDOMEN: Bowel sounds positive. Nontender. Nondistended. EXTREMITIES: No cyanosis, clubbing, or edema. NEUROLOGIC: The patient moves all extremities, slightly weak. LABORATORY AND DIAGNOSTIC DATA: Hemoglobin and hematocrit are 11 and 33. BMP shows BUN and creatinine are 42 and 1.8. Glucose 178. Troponin 0.00. INR is 1.0. PTT is 26. ASSESSMENT: 1. Syncope. 2. Lower extremity pain. 3. Renal failure. 4. History of myocardial infarction. 5. Anemia. 6. Diabetes. PLAN: 1. O2 and pulmonary treatment as needed. 2. PT and dietary evaluation. 3. CBC and BMP in the morning. 4. Monitor on telemetry. 5. Cardiology followup. 6. Blood sugar control. 7. Blood pressure control. 8. Pain control. 9. Dietary followup. Kunal Wing D.O. DR: YVONNE JOB#: [id number] CC:
--- NOTE | 2018-09-09 20:30 | NUR ---
NURSE NOTES: Notified regarding BP of 198/84, new order received, and will be carried out.
[2018-09-09] MEDS: cloNIDine 0.2mg Tab ORAL PRN (20:50)
--- NOTE | 2018-09-09 22:39 | NUR ---
NURSE NOTES: Observed pt sleeping on the bed. BP of 156/68 noted. Pt refused to have IV fluid running. Explained risks and benefits and still refused. Will continue to monitor.
[2018-09-10] VITALS (7 sets, daily range): BP systolic 144–189; BP diastolic 60–77
--- NOTE | 2018-09-10 01:30 | NUR ---
NURSE NOTES: Pt again refused to have IV fluid, says, "This will increase my blood pressure. Please do not give this again." Explained risks and benefits and still refused. Pt appears to be calm and sleeping. Will continue to monitor.
[2018-09-10] MEDS: NovoLOG Insulin Flexpen SUBQ SCH ×4 (05:33→21:55)
[2018-09-10] MEDS: HydrALAZINE 25mg tab ORAL SCH (05:34)
[2018-09-10 06:11] LABS: BASOPHILS % (AUTO) 1.8 % (0.0-2.0); EOSINOPHILS % (AUTO) 5.8 % (0.0-3.0); HEMATOCRIT 35.1 % (37.0-47.0); HEMOGLOBIN 11.6 G/DL (12.0-16.0); LYMPHOCYTES % (AUTO) 34.1 % (20.0-45.0); MEAN CORPUSCULAR VOLUME 83 FL (80-99); MONOCYTES % (AUTO) 8.1 % (1.0-10.0); NEUTROPHILS % (AUTO) 50.2 % (45.0-75.0); PLATELET COUNT 238 K/UL (150-450); RED BLOOD COUNT 4.22 M/UL (4.20-5.40); RED CELL DISTRIBUTION WIDTH 12.9 % (11.6-14.8)
[2018-09-10 06:49] LABS: ALANINE AMINOTRANSFERASE 12 U/L (12-78); ALBUMIN 2.8 G/DL (3.4-5.0); ALBUMIN/GLOBULIN RATIO 0.6 (1.0-2.7); ALKALINE PHOSPHATASE 86 U/L (46-116); ANION GAP 10 mmol/L (5-15); ASPARTATE AMINO TRANSFERASE 13 U/L (15-37); BILIRUBIN,TOTAL 0.3 MG/DL (0.2-1.0); BLOOD UREA NITROGEN 36 mg/dL (7-18); CALCIUM 8.3 MG/DL (8.5-10.1); CARBON DIOXIDE 23 MMOL/L (21-32); CHLORIDE 106 MMOL/L (98-107); CHOLESTEROL 150 MG/DL (< 200); CREATINE KINASE 61 U/L (26-308); CREATININE 1.7 MG/DL (0.55-1.30); FERRITIN 218 NG/ML (8-388); GAMMA GLUTAMYL TRANSPEPTIDASE 17 U/L (5-85); HDL CHOLESTEROL 36 MG/DL (40-60); PHOSPHORUS 4.2 MG/DL (2.5-4.9); POTASSIUM 4.1 MMOL/L (3.5-5.1); SODIUM 139 MMOL/L (136-145); TRIGLYCERIDES 270 MG/DL (30-150)
--- NOTE | 2018-09-10 07:25 | NUR ---
NURSE NOTES: Received report from Wesly THOMAS. Alert and oriented x4. Pt in bed and awake. No c/o pain. Denied chest pain or SOB. IV LFA 22g SL intact and patent. Pt refused IV hydration of NS due to elevated BP. Rhythm with SR reported from Wesly THOMAS during cook night. Will continue to monitor with current plan of care.
--- NOTE | 2018-09-10 07:33 | NUR ---
HAND-OFF: Report given to WILLIAM Frost. No acute distress noted at this time.
[2018-09-10] MEDS: Losartan 50mg tab ORAL SCH (08:05)
[2018-09-10] MEDS: Heparin 5000 units/ml inj SUBQ SCH ×2 (08:06→21:00)
[2018-09-10] MEDS: Docusate 100mg cap ORAL SCH ×3 (08:06→19:18)
--- NOTE | 2018-09-10 09:13 | NUR ---
CASE MANAGEMENT:REVIEW 09/10/18 SI: SYNCOPE. NSVT. HTN 97.2 68 18 153/71 98% ON RA H/H-11.6/35.1 BUN+36 CR+1.7 IS: IVF@75/HR NORVASC PO BID HYDRALAZINE PO Q8HRS PROTONIX PO Q12 PLAVIX PO QD COZAAR PO QD HEPARIN SQ Q12 : TELEMETRY STATUS DCP: PATIENT IS FROM HOME
--- NOTE | 2018-09-10 11:56 | Consultation ---
History of Present Illness General Date patient seen: September 10, 2018 Chief Complaint: Syncope Present Illness HPI 72 year old female with hx of PTCA, DM, HTN presented to ER after an episode of syncope. Apparently she was walking and started having back pain felt shaky, she felt dizzy and felt like she is going to pass out. She did pass out but didn't injure herself. EMS found her with glucose of 190 and a normal EKG. Patient's stroke screen was negative by the paramedics. She is admitted to telemetry for further work up. Allergies: Coded Allergies: PENICILLINS (Verified Allergy, Unknown, 09/10/18) Patient History Healthcare decision maker Resuscitation status Full Code Advanced Directive on File No Past Medical/Surgical History Past Medical/Surgical History: (1) Post PTCA (2) History of hypertension (3) Diabetes mellitus (4) CAD (coronary artery disease) Review of Systems All Other Systems: negative except mentioned in HPI Physical Exam General Appearance: WD/WN Lines, tubes and drains: peripheral HEENT: normocephalic, atraumatic Neck: non-tender, normal alignment Respiratory/Chest: chest wall non-tender, lungs clear, normal breath sounds Breasts: no masses Cardiovascular/Chest: normal peripheral pulses, normal rate Abdomen: normal bowel sounds Genitourinary/Rectal: normal genital exam Last 24 Hour Vital Signs Date Time Temp Pulse Resp B/P (MAP) Pulse Ox O2 Delivery O2 Flow Rate FiO2 09/10/18 08:43 Room Air 09/10/18 08:05 68 153/71 09/10/18 08:05 153/71 09/10/18 08:00 61 09/10/18 08:00 97.2 68 18 153/71 (98) 98 09/10/18 05:34 152/60 09/10/18 04:00 57 09/10/18 04:00 97.7 60 20 152/60 (90) 97 09/10/18 00:00 64 09/10/18 00:00 98.0 67 20 165/68 (100) 95 09/09/18 22:39 156/68 (97) 09/09/18 21:31 171/76 09/09/18 21:20 171/76 (107) 09/09/18 21:00 Room Air 09/09/18 20:50 178/75 09/09/18 20:30 178/75 (109) 09/09/18 20:00 94 09/09/18 20:00 98.7 96 18 198/89 (125) 94 09/09/18 17:22 82 122/84 09/09/18 16:00 98.2 85 20 122/84 (97) 95 09/09/18 16:00 82 09/09/18 13:39 171/80 09/09/18 12:00 99.1 86 20 171/80 (110) 97 09/09/18 12:00 80 Intake and Output 09/09/18 09/10/18 19:00 07:00 Intake Total 1160 ml 100 ml Output Total 1400 ml Balance -240 ml 100 ml Intake Oral 1160 ml 100 ml Output Urine Total 1400 ml # Voids 4 1 Laboratory Tests Test 09/09/18 12:30 09/09/18 14:35 09/09/18 20:00 09/10/18 05:57 Troponin I 0.002 ng/mL (0.000-0.056) 0.017 ng/mL (0.000-0.056) 0.000 ng/mL (0.000-0.056) Urine Color Pale yellow Urine Appearance Clear Urine pH 6 (4.5-8.0) Urine Specific [place] 1.005 (1.005-1.035) Urine Protein 3+ (NEGATIVE) H Urine Glucose (UA) 1+ (NEGATIVE) H Urine Ketones Negative (NEGATIVE) Urine Blood Negative (NEGATIVE) Urine Nitrite Negative (NEGATIVE) Urine Bilirubin Negative (NEGATIVE) Urine Urobilinogen Normal MG/DL (0.0-1.0) Urine Leukocyte Esterase Negative (NEGATIVE) Urine RBC 0 /HPF (0 - 2) Urine WBC 0 /HPF (0 - 2) Urine Squamous Epithelial Cells Occasional /LPF Urine Bacteria None /HPF (NONE) Urine Random Sodium 67 mmol/L (20-110) White Blood Count 6.0 K/UL (4.8-10.8) Red Blood Count 4.22 M/UL (4.20-5.40) Hemoglobin 11.6 G/DL (12.0-16.0) L Hematocrit 35.1 % (37.0-47.0) L Mean Corpuscular Volume 83 FL (80-99) Mean Corpuscular Hemoglobin 27.5 PG (27.0-31.0) Mean Corpuscular Hemoglobin Concent 33.1 G/DL (32.0-36.0) Red Cell Distribution Width 12.9 % (11.6-14.8) Platelet Count 238 K/UL (150-450) Mean Platelet Volume 6.8 FL (6.5-10.1) Neutrophils (%) (Auto) 50.2 % (45.0-75.0) Lymphocytes (%) (Auto) 34.1 % (20.0-45.0) Monocytes (%) (Auto) 8.1 % (1.0-10.0) Eosinophils (%) (Auto) 5.8 % (0.0-3.0) H Basophils (%) (Auto) 1.8 % (0.0-2.0) Sodium Level 139 MMOL/L (136-145) Potassium Level 4.1 MMOL/L (3.5-5.1) Chloride Level 106 MMOL/L (98-107) Carbon Dioxide Level 23 MMOL/L (21-32) Anion Gap 10 mmol/L (5-15) Blood Urea Nitrogen 36 mg/dL (7-18) H Creatinine 1.7 MG/DL (0.55-1.30) H Estimat Glomerular Filtration Rate mL/min (>60) Glucose Level 176 MG/DL (74-106) H Uric Acid 10.0 MG/DL (2.6-7.2) H Calcium Level 8.3 MG/DL (8.5-10.1) L Phosphorus Level 4.2 MG/DL (2.5-4.9) Magnesium Level 1.7 MG/DL (1.8-2.4) L Ferritin 218 NG/ML (8-388) Total Bilirubin 0.3 MG/DL (0.2-1.0) Gamma Glutamyl Transpeptidase 17 U/L (5-85) Aspartate Amino Transf (AST/SGOT) 13 U/L (15-37) L Alanine Aminotransferase (ALT/SGPT) 12 U/L (12-78) Alkaline Phosphatase 86 U/L (46-116) Total Creatine Kinase 61 U/L (26-308) C-Reactive Protein, Quantitative 0.8 mg/dL (0.00-0.90) Pro-B-Type Natriuretic Peptide 980 pg/mL (0-125) H Total Protein 7.2 G/DL (6.4-8.2) Albumin 2.8 G/DL (3.4-5.0) L Globulin 4.4 g/dL Albumin/Globulin Ratio 0.6 (1.0-2.7) L Triglycerides Level 270 MG/DL (30-150) H Cholesterol Level 150 MG/DL (< 200) LDL Cholesterol 63 mg/dL (<100) HDL Cholesterol 36 MG/DL (40-60) L Cholesterol/HDL Ratio 4.2 (3.3-4.4) Vitamin B12 Level 912 PG/ML (193-986) Folate 6.5 NG/ML (8.6-58.9) L Height (Feet): 5 Height (Inches): 5.00 Weight (Pounds): 157 Medications Current Medications Medications (Trade) Dose Ordered Sig/Nichole Route PRN Reason Start Time Stop Time Status Last Admin Dose Admin Acetaminophen (Tylenol) 650 mg Q6H PRN ORAL Mild Pain/Temp > 100.5 09/09/18 02:15 10/09/18 02:14 Amlodipine Besylate (Norvasc) 5 mg BID ORAL 09/09/18 18:00 10/09/18 20:59 09/10/18 08:05 Clonidine HCl (Catapres tab) 0.2 mg Q2H PRN ORAL For High Blood Pressure 09/09/18 20:30 10/09/18 20:29 09/09/18 20:50 Clopidogrel Bisulfate (Plavix) 75 mg DAILY ORAL 09/09/18 09:00 10/09/18 08:59 09/10/18 08:06 Dextrose (Dextrose 50%) 25 ml Q30M PRN IV Hypoglycemia 09/09/18 02:15 10/09/18 02:14 Dextrose (Dextrose 50%) 50 ml Q30M PRN IV Hypoglycemia 09/09/18 02:15 10/09/18 02:14 Docusate Sodium (Colace) 100 mg THREE TIMES A DAY ORAL 09/09/18 13:00 10/09/18 12:59 09/10/18 08:06 Heparin Sodium (Porcine) (Heparin 5000 units/ml) 5,000 units EVERY 12 HOURS SUBQ 09/09/18 09:00 10/09/18 08:59 Hydralazine HCl (Apresoline) 50 mg Q8HR ORAL 09/10/18 14:00 10/09/18 13:59 Insulin Aspart (NovoLOG) BEFORE MEALS AND HS SUBQ 09/09/18 06:30 10/09/18 06:29 09/10/18 05:33 Losartan Potassium (Cozaar) 50 mg DAILY ORAL 09/09/18 09:00 10/09/18 08:59 09/10/18 08:05 Morphine Sulfate (Morphine Sulfate) 2 mg Q4H PRN IVP For Pain 09/09/18 02:15 09/16/18 02:14 Pantoprazole (Protonix) 40 mg EVERY 12 HOURS ORAL 09/09/18 12:15 10/09/18 12:14 09/10/18 08:04 Sodium Chloride 1,000 ml @ 75 mls/hr [id number] IV 09/09/18 12:15 10/09/18 12:14 09/09/18 12:58 Assessment/Plan Problem List: (1) Acute encephalopathy ICD Codes: G93.40 - Encephalopathy, unspecified SNOMED: 50273617, 412053207 (2) ATN (acute tubular necrosis) ICD Codes: N17.0 - Acute kidney failure with tubular necrosis SNOMED: 19553268 (3) History of hypertension ICD Codes: Z86.79 - Personal history of other diseases of the circulatory system SNOMED: 504733375 (4) Post PTCA ICD Codes: Z98.61 - Coronary angioplasty status SNOMED: 91994103, 246897480 (5) Diabetes mellitus ICD Codes: E11.9 - Type 2 diabetes mellitus without complications SNOMED: 43370979 (6) CAD (coronary artery disease) ICD Codes: I25.10 - Atherosclerotic heart disease of [place] coronary artery without angina pectoris SNOMED: 40985393 Assessment/Plan: echo reviewed on how risk for PE f/u cardio and neuro recommendations monitor BP d/w dr sawant about hypercalcemia Donald Walters MD September 10, 2018 11:56
--- NOTE | 2018-09-10 11:59 | Nephrology Progress Note ---
Assessment/Plan Problem List: (1) Renal failure (ARF), acute on chronic (2) Diabetic nephropathy (3) Dehydration (4) History of hypertension (5) Diabetes mellitus (6) CAD (coronary artery disease) Assessment Renal failure- acute - ? underlying CKD DM OOC CAD asthma Plan adjust bp meds stop IV hydrate UA 2D echo 60% EjFx continue rest DC planning per PMD Subjective ROS Limited/Unobtainable: No Constitutional: Reports: other - stronger Objective Objective Last 24 Hour Vital Signs Date Time Temp Pulse Resp B/P (MAP) Pulse Ox O2 Delivery O2 Flow Rate FiO2 09/10/18 08:43 Room Air 09/10/18 08:05 68 153/71 09/10/18 08:05 153/71 09/10/18 08:00 61 09/10/18 08:00 97.2 68 18 153/71 (98) 98 09/10/18 05:34 152/60 09/10/18 04:00 57 09/10/18 04:00 97.7 60 20 152/60 (90) 97 09/10/18 00:00 64 09/10/18 00:00 98.0 67 20 165/68 (100) 95 09/09/18 22:39 156/68 (97) 09/09/18 21:31 171/76 09/09/18 21:20 171/76 (107) 09/09/18 21:00 Room Air 09/09/18 20:50 178/75 09/09/18 20:30 178/75 (109) 09/09/18 20:00 94 09/09/18 20:00 98.7 96 18 198/89 (125) 94 09/09/18 17:22 82 122/84 09/09/18 16:00 98.2 85 20 122/84 (97) 95 09/09/18 16:00 82 09/09/18 13:39 171/80 09/09/18 12:00 99.1 86 20 171/80 (110) 97 09/09/18 12:00 80 Intake and Output 09/09/18 09/10/18 19:00 07:00 Intake Total 1160 ml 100 ml Output Total 1400 ml Balance -240 ml 100 ml Intake Oral 1160 ml 100 ml Output Urine Total 1400 ml # Voids 4 1 Current Medications Medications (Trade) Dose Ordered Sig/Nichole Route PRN Reason Start Time Stop Time Status Last Admin Dose Admin Acetaminophen (Tylenol) 650 mg Q6H PRN ORAL Mild Pain/Temp > 100.5 09/09/18 02:15 10/09/18 02:14 Amlodipine Besylate (Norvasc) 5 mg BID ORAL 09/09/18 18:00 10/09/18 20:59 09/10/18 08:05 Clonidine HCl (Catapres tab) 0.2 mg Q2H PRN ORAL For High Blood Pressure 09/09/18 20:30 10/09/18 20:29 09/09/18 20:50 Clopidogrel Bisulfate (Plavix) 75 mg DAILY ORAL 09/09/18 09:00 10/09/18 08:59 09/10/18 08:06 Dextrose (Dextrose 50%) 25 ml Q30M PRN IV Hypoglycemia 09/09/18 02:15 10/09/18 02:14 Dextrose (Dextrose 50%) 50 ml Q30M PRN IV Hypoglycemia 09/09/18 02:15 10/09/18 02:14 Docusate Sodium (Colace) 100 mg THREE TIMES A DAY ORAL 09/09/18 13:00 10/09/18 12:59 09/10/18 08:06 Heparin Sodium (Porcine) (Heparin 5000 units/ml) 5,000 units EVERY 12 HOURS SUBQ 09/09/18 09:00 10/09/18 08:59 Hydralazine HCl (Apresoline) 50 mg Q8HR ORAL 09/10/18 14:00 10/09/18 13:59 Insulin Aspart (NovoLOG) BEFORE MEALS AND HS SUBQ 09/09/18 06:30 10/09/18 06:29 09/10/18 05:33 Losartan Potassium (Cozaar) 50 mg DAILY ORAL 09/09/18 09:00 10/09/18 08:59 09/10/18 08:05 Morphine Sulfate (Morphine Sulfate) 2 mg Q4H PRN IVP For Pain 09/09/18 02:15 09/16/18 02:14 Pantoprazole (Protonix) 40 mg EVERY 12 HOURS ORAL 09/09/18 12:15 10/09/18 12:14 09/10/18 08:04 Sodium Chloride 1,000 ml @ 75 mls/hr [id number] 09/09/18 12:15 10/09/18 12:14 09/09/18 12:58 Laboratory Tests 09/09/18 12:30: Troponin I 0.002 09/09/18 14:35: Urine Color Pale yellow, Urine Appearance Clear, Urine pH 6, Urine Specific [place] 1.005, Urine Protein 3+H, Urine Glucose (UA) 1+H, Urine Ketones Negative , Urine Blood Negative, Urine Nitrite Negative, Urine Bilirubin Negative, Urine Urobilinogen Normal, Urine Leukocyte Esterase Negative, Urine RBC 0, Urine WBC 0 , Urine Squamous Epithelial Cells Occasional, Urine Bacteria None, Urine Random Sodium 67 09/09/18 20:00: Troponin I 0.017 09/10/18 05:57: Troponin I 0.000, White Blood Count 6.0, Red Blood Count 4.22, Hemoglobin 11.6L , Hematocrit 35.1L, Mean Corpuscular Volume 83, Mean Corpuscular Hemoglobin 27.5 , Mean Corpuscular Hemoglobin Concent 33.1, Red Cell Distribution Width 12.9, Platelet Count 238, Mean Platelet Volume 6.8, Neutrophils (%) (Auto) 50.2, Lymphocytes (%) (Auto) 34.1, Monocytes (%) (Auto) 8.1, Eosinophils (%) (Auto) 5.8H, Basophils (%) (Auto) 1.8, Sodium Level 139, Potassium Level 4.1, Chloride Level 106, Carbon Dioxide Level 23, Anion Gap 10, Blood Urea Nitrogen 36H, Creatinine 1.7H, Estimat Glomerular Filtration Rate , Glucose Level 176H, Uric Acid 10.0H, Calcium Level 8.3L, Phosphorus Level 4.2, Magnesium Level 1.7L, Ferritin 218, Total Bilirubin 0.3, Gamma Glutamyl Transpeptidase 17, Aspartate Amino Transf (AST/SGOT) 13L, Alanine Aminotransferase (ALT/SGPT) 12, Alkaline Phosphatase 86, Total Creatine Kinase 61, C-Reactive Protein, Quantitative 0.8, Pro-B-Type Natriuretic Peptide 980H, Total Protein 7.2, Albumin 2.8L, Globulin 4.4, Albumin/Globulin Ratio 0.6L, Triglycerides Level 270H, Cholesterol Level 150, LDL Cholesterol 63, HDL Cholesterol 36L, Cholesterol/HDL Ratio 4.2, Vitamin B12 Level 912, Folate 6.5L Height (Feet): 5 Height (Inches): 5.00 Weight (Pounds): 157 General Appearance: no apparent distress Cardiovascular: normal rate Respiratory/Chest: decreased breath sounds Abdomen: soft, absent bowel sounds Pacheco Jansen MD September 10, 2018 11:59
--- NOTE | 2018-09-10 12:32 | NUR ---
*-* INSURANCE *-* ALL CLINICALS AND REVIEWS HAVE BEEN FAXED TO: [employer] #[id number] STEPHANIM:RACHEL TEL: [phone] FAX: [phone]
[2018-09-10 12:40] LABS: % IRON SATURATION 32 % (15-50); IRON 60 ug/dL (50-175); TOTAL IRON BINDING CAPACITY 188 ug/dL (250-450)
[2018-09-10] MEDS: HydrALAZINE 50mg tab ORAL SCH ×2 (14:11→21:48)
--- NOTE | 2018-09-10 14:25 | NUR ---
P.T Note: P.T evaluation completed. Based on P.T evaluation, pt's functional status does does not require skilled P.T services as patient is currently baseline independent. DC P.T services. Thank you fort this referral.
--- NOTE | 2018-09-10 15:04 | General Progress Note ---
Assessment/Plan Problem List: (1) Renal failure (ARF), acute on chronic ICD Codes: N17.9 - Acute kidney failure, unspecified; N18.9 - Chronic kidney disease, unspecified SNOMED: 080205965 (2) Syncope ICD Codes: R55 - Syncope and collapse SNOMED: 432947841 Qualifiers: Qualified Codes: R55 - Syncope and collapse (3) Diabetes mellitus ICD Codes: E11.9 - Type 2 diabetes mellitus without complications SNOMED: 13123392 Status: stable, progressing Assessment/Plan: cardio neuro f/u bs control cbc bmp amdc if cler Subjective Constitutional: Reports: weakness Allergies: Coded Allergies: PENICILLINS (Verified Allergy, Unknown, 09/10/18) All Systems: reviewed and negative except above Subjective calm in bed no complaints Objective Last 24 Hour Vital Signs Date Time Temp Pulse Resp B/P (MAP) Pulse Ox O2 Delivery O2 Flow Rate FiO2 09/10/18 14:20 98.2 66 18 153/69 (97) 99 09/10/18 14:11 144/63 09/10/18 12:00 60 09/10/18 12:00 98.0 63 18 144/63 (90) 99 09/10/18 08:43 Room Air 09/10/18 08:05 68 153/71 09/10/18 08:05 153/71 09/10/18 08:00 61 09/10/18 08:00 97.2 68 18 153/71 (98) 98 09/10/18 05:34 152/60 09/10/18 04:00 57 09/10/18 04:00 97.7 60 20 152/60 (90) 97 09/10/18 00:00 64 09/10/18 00:00 98.0 67 20 165/68 (100) 95 09/09/18 22:39 156/68 (97) 09/09/18 21:31 171/76 09/09/18 21:20 171/76 (107) 09/09/18 21:00 Room Air 09/09/18 20:50 178/75 09/09/18 20:30 178/75 (109) 09/09/18 20:00 94 09/09/18 20:00 98.7 96 18 198/89 (125) 94 09/09/18 17:22 82 122/84 09/09/18 16:00 98.2 85 20 122/84 (97) 95 09/09/18 16:00 82 Intake and Output 09/09/18 09/10/18 19:00 07:00 Intake Total 1160 ml 100 ml Output Total 1400 ml Balance -240 ml 100 ml Intake Oral 1160 ml 100 ml Output Urine Total 1400 ml # Voids 4 1 Laboratory Tests 09/09/18 20:00: Troponin I 0.017 09/10/18 05:57: Troponin I 0.000, White Blood Count 6.0, Red Blood Count 4.22, Hemoglobin 11.6L , Hematocrit 35.1L, Mean Corpuscular Volume 83, Mean Corpuscular Hemoglobin 27.5 , Mean Corpuscular Hemoglobin Concent 33.1, Red Cell Distribution Width 12.9, Platelet Count 238, Mean Platelet Volume 6.8, Neutrophils (%) (Auto) 50.2, Lymphocytes (%) (Auto) 34.1, Monocytes (%) (Auto) 8.1, Eosinophils (%) (Auto) 5.8H, Basophils (%) (Auto) 1.8, Sodium Level 139, Potassium Level 4.1, Chloride Level 106, Carbon Dioxide Level 23, Anion Gap 10, Blood Urea Nitrogen 36H, Creatinine 1.7H, Estimat Glomerular Filtration Rate , Glucose Level 176H, Uric Acid 10.0H, Calcium Level 8.3L, Phosphorus Level 4.2, Magnesium Level 1.7L, Iron Level 60, Total Iron Binding Capacity 188L, Percent Iron Saturation 32, Unsaturated Iron Binding 128, Ferritin 218, Total Bilirubin 0.3, Gamma Glutamyl Transpeptidase 17, Aspartate Amino Transf (AST/SGOT) 13L, Alanine Aminotransferase (ALT/SGPT) 12, Alkaline Phosphatase 86, Total Creatine Kinase 61, C-Reactive Protein, Quantitative 0.8, Pro-B-Type Natriuretic Peptide 980H, Total Protein 7.2, Albumin 2.8L, Globulin 4.4, Albumin/Globulin Ratio 0.6L, Triglycerides Level 270H, Cholesterol Level 150, LDL Cholesterol 63, HDL Cholesterol 36L, Cholesterol/HDL Ratio 4.2, Vitamin B12 Level 912, Folate 6.5L Height (Feet): 5 Height (Inches): 5.00 Weight (Pounds): 157 General Appearance: alert EENT: normal ENT inspection Neck: normal alignment Cardiovascular: normal peripheral pulses, normal rate, regular rhythm Respiratory/Chest: chest wall non-tender, lungs clear, normal breath sounds Abdomen: normal bowel sounds, non tender, soft Extremities: normal inspection Edema: no edema noted Arm (L), no edema noted Arm (R), no edema noted Leg (L), no edema noted Leg (R), no edema noted Pedal (L), no edema noted Pedal (R), no edema noted Generalized Neurologic: responsive, motor weakness Skin: normal pigmentation, warm/dry Kunal Wing DO September 10, 2018 15:04
--- NOTE | 2018-09-10 15:13 | Cardiac Electrophysiology PN ---
Subjective Subjective [id number] Objective Last 24 Hour Vital Signs Date Time Temp Pulse Resp B/P (MAP) Pulse Ox O2 Delivery O2 Flow Rate FiO2 09/10/18 14:20 98.2 66 18 153/69 (97) 99 09/10/18 14:11 144/63 09/10/18 12:00 60 09/10/18 12:00 98.0 63 18 144/63 (90) 99 09/10/18 08:43 Room Air 09/10/18 08:05 68 153/71 09/10/18 08:05 153/71 09/10/18 08:00 61 09/10/18 08:00 97.2 68 18 153/71 (98) 98 09/10/18 05:34 152/60 09/10/18 04:00 57 09/10/18 04:00 97.7 60 20 152/60 (90) 97 09/10/18 00:00 64 09/10/18 00:00 98.0 67 20 165/68 (100) 95 09/09/18 22:39 156/68 (97) 09/09/18 21:31 171/76 09/09/18 21:20 171/76 (107) 09/09/18 21:00 Room Air 09/09/18 20:50 178/75 09/09/18 20:30 178/75 (109) 09/09/18 20:00 94 09/09/18 20:00 98.7 96 18 198/89 (125) 94 09/09/18 17:22 82 122/84 09/09/18 16:00 98.2 85 20 122/84 (97) 95 09/09/18 16:00 82 Intake and Output 09/09/18 09/10/18 19:00 07:00 Intake Total 1160 ml 100 ml Output Total 1400 ml Balance -240 ml 100 ml Intake Oral 1160 ml 100 ml Output Urine Total 1400 ml # Voids 4 1 Laboratory Tests Test 09/09/18 20:00 09/10/18 05:57 Troponin I 0.017 ng/mL (0.000-0.056) 0.000 ng/mL (0.000-0.056) White Blood Count 6.0 K/UL (4.8-10.8) Red Blood Count 4.22 M/UL (4.20-5.40) Hemoglobin 11.6 G/DL (12.0-16.0) L Hematocrit 35.1 % (37.0-47.0) L Mean Corpuscular Volume 83 FL (80-99) Mean Corpuscular Hemoglobin 27.5 PG (27.0-31.0) Mean Corpuscular Hemoglobin Concent 33.1 G/DL (32.0-36.0) Red Cell Distribution Width 12.9 % (11.6-14.8) Platelet Count 238 K/UL (150-450) Mean Platelet Volume 6.8 FL (6.5-10.1) Neutrophils (%) (Auto) 50.2 % (45.0-75.0) Lymphocytes (%) (Auto) 34.1 % (20.0-45.0) Monocytes (%) (Auto) 8.1 % (1.0-10.0) Eosinophils (%) (Auto) 5.8 % (0.0-3.0) H Basophils (%) (Auto) 1.8 % (0.0-2.0) Sodium Level 139 MMOL/L (136-145) Potassium Level 4.1 MMOL/L (3.5-5.1) Chloride Level 106 MMOL/L (98-107) Carbon Dioxide Level 23 MMOL/L (21-32) Anion Gap 10 mmol/L (5-15) Blood Urea Nitrogen 36 mg/dL (7-18) H Creatinine 1.7 MG/DL (0.55-1.30) H Estimat Glomerular Filtration Rate mL/min (>60) Glucose Level 176 MG/DL (74-106) H Uric Acid 10.0 MG/DL (2.6-7.2) H Calcium Level 8.3 MG/DL (8.5-10.1) L Phosphorus Level 4.2 MG/DL (2.5-4.9) Magnesium Level 1.7 MG/DL (1.8-2.4) L Iron Level 60 ug/dL (50-175) Total Iron Binding Capacity 188 ug/dL (250-450) L Percent Iron Saturation 32 % (15-50) Unsaturated Iron Binding 128 ug/dL (112-346) Ferritin 218 NG/ML (8-388) Total Bilirubin 0.3 MG/DL (0.2-1.0) Gamma Glutamyl Transpeptidase 17 U/L (5-85) Aspartate Amino Transf (AST/SGOT) 13 U/L (15-37) L Alanine Aminotransferase (ALT/SGPT) 12 U/L (12-78) Alkaline Phosphatase 86 U/L (46-116) Total Creatine Kinase 61 U/L (26-308) C-Reactive Protein, Quantitative 0.8 mg/dL (0.00-0.90) Pro-B-Type Natriuretic Peptide 980 pg/mL (0-125) H Total Protein 7.2 G/DL (6.4-8.2) Albumin 2.8 G/DL (3.4-5.0) L Globulin 4.4 g/dL Albumin/Globulin Ratio 0.6 (1.0-2.7) L Triglycerides Level 270 MG/DL (30-150) H Cholesterol Level 150 MG/DL (< 200) LDL Cholesterol 63 mg/dL (<100) HDL Cholesterol 36 MG/DL (40-60) L Cholesterol/HDL Ratio 4.2 (3.3-4.4) Vitamin B12 Level 912 PG/ML (193-986) Folate 6.5 NG/ML (8.6-58.9) L Rogers Schreiber MD September 10, 2018 15:13
[2018-09-10] MEDS ORDERED: Lexiscan 0.4mg/5ml syringe IV PRN (15:15)
--- NOTE | 2018-09-10 19:40 | NUR ---
HAND-OFF: Report given to Oriana THOMAS. Pt remains stable. Obtained the consent for stress test.
--- NOTE | 2018-09-10 19:41 | NUR ---
NURSE NOTES: Received report from WILLIAM Frost. Patient in bed awake showing no signs of acute distress. Respiration even and non labored on room air. No SOB noted. Bed in lowest position, wheels locked, and alarm on. Call light within reach. All needs attended and met. Will continue plan of care.
[2018-09-10] MEDS: cloNIDine 0.2mg Tab ORAL PRN (22:55)
--- NOTE | 2018-09-10 23:15 | Consultation ---
DATE OF CONSULTATION: 09/10/2018 CARDIAC ELECTROPHYSIOLOGY CONSULTATION CONSULTING PHYSICIAN: Rogers Schreiber M.D. REFERRING PHYSICIAN: Kunal Wing D.O. REASON FOR CONSULTATION: Ventricular tachycardia and syncope. HISTORY OF PRESENT ILLNESS: The patient is a 72-year-old [place] lady, who was admitted to the hospital for syncope . The patient did not have any chest pain or palpitation or shortness of breath, but she felt weak and tired. On telemetry, the patient had 6 beats of ventricular tachycardia and was admitted and a Cardiology consultation was requested for further evaluation. CT of the brain showed no acute intracranial bleed or mass effect. At the time of my evaluation, the patient denies any chest pain, palpitation, or shortness of breath. The patient also underwent an echocardiogram that showed ejection fraction of 60 to 65%. Her EKG showed normal sinus rhythm and essentially normal electrocardiogram. REVIEW OF SYSTEMS: Negative other than what is mentioned in the history of present illness. PAST MEDICAL HISTORY: As mentioned above. FAMILY HISTORY: Noncontributory. SOCIAL HISTORY: She lives at home. Does not smoke or drink alcohol. PHYSICAL EXAMINATION: VITAL SIGNS: Blood pressure is 160/69, pulse 66, respirations 18, and temperature 98.2. HEAD AND NECK: Showed no jugular venous distention. LUNGS: Clear. CARDIOVASCULAR: Shows regular S1 and S2 with no gallop or murmur. ABDOMEN: Soft. EXTREMITIES: No pitting edema. LABORATORY DATA: Her labs show white count of 6, hemoglobin 11, hematocrit of 35, and platelet count is 238,000. Sodium is 139, potassium 4.1, BUN of 36, creatinine 1.7, and glucose of 170. Troponin negative x3. ASSESSMENT AND PLAN: 1. Nonsustained ventricular tachycardia and syncope. The patient is already ruled out for myocardial infarction with serial cardiac enzymes. Echocardiogram showed normal left ventricular systolic function and no aortic stenosis. EKG did not show any acute ischemic changes. We will proceed with nuclear stress test to make sure if the patient does have any underlying ischemia. 2. Hypertension. On hydralazine 50 mg every 8 hours and Norvasc 5 mg b.i.d. The patient is also on p.r.n. clonidine as well as losartan 50 mg daily. 3. Diabetes. On insulin. Thank you very much for allowing me to participate in the care of this patient. Please do not hesitate to contact me for any questions regarding my evaluation. Rogers Schreiber M.D. DR: ADRIANO JOB#: [id number] CC:
[2018-09-11] VITALS: BP 161/67
--- NOTE | 2018-09-11 02:32 | Neurology Progress Note ---
Interim History Interim History ROS Limited/Unobtainable: No Complaints: Syncope Events: Normal MRI Review of Systems All Systems: reviewed and negative except above Objective Physical Exam Last Vital Signs Date Time Temp Pulse Resp B/P (MAP) Pulse Ox O2 Delivery O2 Flow Rate FiO2 09/11/18 00:00 66 09/11/18 00:00 97.0 20 161/67 (98) 94 09/10/18 21:00 Room Air Laboratory Tests Test 09/10/18 05:57 White Blood Count 6.0 K/UL (4.8-10.8) Red Blood Count 4.22 M/UL (4.20-5.40) Hemoglobin 11.6 G/DL (12.0-16.0) L Hematocrit 35.1 % (37.0-47.0) L Mean Corpuscular Volume 83 FL (80-99) Mean Corpuscular Hemoglobin 27.5 PG (27.0-31.0) Mean Corpuscular Hemoglobin Concent 33.1 G/DL (32.0-36.0) Red Cell Distribution Width 12.9 % (11.6-14.8) Platelet Count 238 K/UL (150-450) Mean Platelet Volume 6.8 FL (6.5-10.1) Neutrophils (%) (Auto) 50.2 % (45.0-75.0) Lymphocytes (%) (Auto) 34.1 % (20.0-45.0) Monocytes (%) (Auto) 8.1 % (1.0-10.0) Eosinophils (%) (Auto) 5.8 % (0.0-3.0) H Basophils (%) (Auto) 1.8 % (0.0-2.0) Sodium Level 139 MMOL/L (136-145) Potassium Level 4.1 MMOL/L (3.5-5.1) Chloride Level 106 MMOL/L (98-107) Carbon Dioxide Level 23 MMOL/L (21-32) Anion Gap 10 mmol/L (5-15) Blood Urea Nitrogen 36 mg/dL (7-18) H Creatinine 1.7 MG/DL (0.55-1.30) H Estimat Glomerular Filtration Rate mL/min (>60) Glucose Level 176 MG/DL (74-106) H Uric Acid 10.0 MG/DL (2.6-7.2) H Calcium Level 8.3 MG/DL (8.5-10.1) L Phosphorus Level 4.2 MG/DL (2.5-4.9) Magnesium Level 1.7 MG/DL (1.8-2.4) L Iron Level 60 ug/dL (50-175) Total Iron Binding Capacity 188 ug/dL (250-450) L Percent Iron Saturation 32 % (15-50) Unsaturated Iron Binding 128 ug/dL (112-346) Ferritin 218 NG/ML (8-388) Total Bilirubin 0.3 MG/DL (0.2-1.0) Gamma Glutamyl Transpeptidase 17 U/L (5-85) Aspartate Amino Transf (AST/SGOT) 13 U/L (15-37) L Alanine Aminotransferase (ALT/SGPT) 12 U/L (12-78) Alkaline Phosphatase 86 U/L (46-116) Total Creatine Kinase 61 U/L (26-308) Troponin I 0.000 ng/mL (0.000-0.056) C-Reactive Protein, Quantitative 0.8 mg/dL (0.00-0.90) Pro-B-Type Natriuretic Peptide 980 pg/mL (0-125) H Total Protein 7.2 G/DL (6.4-8.2) Albumin 2.8 G/DL (3.4-5.0) L Globulin 4.4 g/dL Albumin/Globulin Ratio 0.6 (1.0-2.7) L Triglycerides Level 270 MG/DL (30-150) H Cholesterol Level 150 MG/DL (< 200) LDL Cholesterol 63 mg/dL (<100) HDL Cholesterol 36 MG/DL (40-60) L Cholesterol/HDL Ratio 4.2 (3.3-4.4) Vitamin B12 Level 912 PG/ML (193-986) Folate 6.5 NG/ML (8.6-58.9) L Neurologic Exam Mental Status: awake, alert, oriented x4, normal cognition, good mathematical skills, normal recent memory, normal remote memory, preserved visuospatial function Speech: normal speech, no dysarthia Language: normal language, no aphasia Cranial Nerve II: fundus normal, visual larson, no papilledema Cranial Nerves III, IV, : PERRLA, EOMI, pupils Cranial Nerve V: normal facial sensations, temporales function normal, masseters function normal, pterygoids function normal Cranial Nerve VII: no facial asymmetry, normal facial expressions Cranial Nerve VIII: normal hearing, no nystagmus Cranial Nerve IX: normal palate elevation, gag response Cranial Nerve X: no voice hoarseness Cranial Nerve XI: SCM symmetric, trapezii function normal Cranial Nerve XII: tongue midline, no tongue atrophy/fasciculations Motor System: normal muscle tone, strength 5/5, no involuntary movement, no muscle wasting Sensory: normal pinprick, normal light touch, normal position sense, normal graphesthesia Coordination: normal finger to nose bilaterally, normal heel to rogers bilaterally, negative Romberg test Deep Tendon Reflexes: 2+ bicep (L), 2+ bicep (R), 2+ tricep (L), 2+ tricep (R) , 2+ brachioradialis (L), 2+ brachioradialis (R), 2+ knee (L), 2+ knee (R), 2+ ankle (L), 2+ ankle (R) Stance: normal Gait: stable, normal regular, heel + toe gait Impression/Recommendations Problems: (1) Diabetic nephropathy (2) Hypomagnesemia with secondary hypocalcemia Assessment & Plan: Correct / Replete lytes (3) Diabetes mellitus (4) History of hypertension (5) Acute encephalopathy Status: stable, progressing Recommendations MRI Brain was NAD and patient is back to baseline without recurrent sx . Clear for discharge from a neurological perspective Emi Anthony N.P. September 11, 2018 02:32
[2018-09-11 04:00] VITALS: BP 134/57
[2018-09-11] MEDS: HydrALAZINE 50mg tab ORAL SCH ×2 (05:57→16:11)
[2018-09-11] MEDS: NovoLOG Insulin Flexpen SUBQ SCH ×3 (06:04→16:17)
[2018-09-11 06:53] LABS: ANION GAP 11 mmol/L (5-15); BLOOD UREA NITROGEN 40 mg/dL (7-18); CALCIUM 8.4 MG/DL (8.5-10.1); CARBON DIOXIDE 23 MMOL/L (21-32); CHLORIDE 104 MMOL/L (98-107); CREATININE 1.7 MG/DL (0.55-1.30); SODIUM 138 MMOL/L (136-145)
[2018-09-11 07:09] LABS: BASOPHILS % (AUTO) 1.2 % (0.0-2.0); EOSINOPHILS % (AUTO) 5.5 % (0.0-3.0); HEMATOCRIT 35.5 % (37.0-47.0); HEMOGLOBIN 11.7 G/DL (12.0-16.0); LYMPHOCYTES % (AUTO) 28.5 % (20.0-45.0); MEAN CORPUSCULAR VOLUME 83 FL (80-99); MONOCYTES % (AUTO) 7.7 % (1.0-10.0); NEUTROPHILS % (AUTO) 57.1 % (45.0-75.0); PLATELET COUNT 221 K/UL (150-450); RED BLOOD COUNT 4.27 M/UL (4.20-5.40); RED CELL DISTRIBUTION WIDTH 12.8 % (11.6-14.8); WHITE BLOOD COUNT 6.8 K/UL (4.8-10.8)
--- NOTE | 2018-09-11 07:47 | NUR ---
HAND-OFF: Report given to WILLIAM Todd.
--- NOTE | 2018-09-11 07:48 | NUR ---
NURSE NOTES: received patient report from gayathri rn. patient is on bed awake. not in acute distress. kept NPO during the night for stresst test. singh master technician, patient is ok to have light breakfast. will follow plan of care.
[2018-09-11 08:00] VITALS: BP 155/58
[2018-09-11] MEDS: Losartan 50mg tab ORAL SCH (08:11)
[2018-09-11 08:42] LABS: ALANINE AMINOTRANSFERASE 14 U/L (12-78); ALBUMIN 2.9 G/DL (3.4-5.0); ALKALINE PHOSPHATASE 89 U/L (46-116); ASPARTATE AMINO TRANSFERASE 14 U/L (15-37); BILIRUBIN,DIRECT < 0.1 MG/DL (0.0-0.3); BILIRUBIN,TOTAL 0.2 MG/DL (0.2-1.0); PHOSPHORUS 4.5 MG/DL (2.5-4.9)
--- NOTE | 2018-09-11 08:57 | NUR ---
CASE MANAGEMENT:REVIEW 09/11/18 SI: SYNCOPE. NSVT. HTN 98.2 56 20 134/57 96% ON RA H/H-11.7/35.5 BUN+40 CR+1.7 IS: IV LEXISCAN X1 NORVASC PO BID HYDRALAZINE PO Q8HRS PROTONIX PO Q12 PLAVIX PO QD COZAAR PO QD HEPARIN SQ Q12 : TELEMETRY STATUS DCP: PATIENT IS FROM HOME PLAN: PLAN WAS TO DISCHARGE HOME YESTERDAY IF CLEARED BY STUDENT OUTREACH COORDINATOR STUDENT OUTREACH COORDINATOR CANCELLED DISCHARGE AND ORDERED A STRESS TEST THAT WILL BE DONE TODAY
[2018-09-11] MEDS: Docusate 100mg cap ORAL SCH ×4 (09:00→17:10)
[2018-09-11] MEDS: Heparin 5000 units/ml inj SUBQ SCH (09:00)
--- NOTE | 2018-09-11 09:01 | NUR ---
DISCHARGE PLANNING PATIENT IS OUT OF NETWORK AND NEEDS TO BE DISCHARGED OR TRANSFERRED TO CONTRACTED HOSPITAL AFTER STRESS TEST
--- NOTE | 2018-09-11 09:58 | NUR ---
MRI BRAIN COMPLETED.
--- NOTE | 2018-09-11 10:18 | Nephrology Progress Note ---
Assessment/Plan Problem List: (1) Renal failure (ARF), acute on chronic (2) Diabetic nephropathy (3) Dehydration (4) History of hypertension (5) Diabetes mellitus (6) CAD (coronary artery disease) Assessment Renal failure- acute - ? underlying CKD DM OOC CAD asthma Plan start allopurinol adjust bp meds stop IV hydrate UA 2D echo 60% EjFx continue rest DC planning per PMD Subjective ROS Limited/Unobtainable: No Constitutional: Reports: malaise Objective Objective Last 24 Hour Vital Signs Date Time Temp Pulse Resp B/P (MAP) Pulse Ox O2 Delivery O2 Flow Rate FiO2 09/11/18 09:00 Room Air 09/11/18 08:00 52 09/11/18 08:00 96.0 53 19 155/58 (90) 97 09/11/18 05:57 134/57 09/11/18 04:00 56 09/11/18 04:00 98.2 55 20 134/57 (82) 96 09/11/18 00:00 66 09/11/18 00:00 97.0 68 20 161/67 (98) 94 09/10/18 22:55 181/79 09/10/18 21:48 187/69 09/10/18 21:00 Room Air 09/10/18 20:00 68 09/10/18 20:00 98.9 73 20 189/77 (114) 96 09/10/18 19:18 62 161/62 09/10/18 16:00 68 09/10/18 16:00 97.4 62 18 161/62 (95) 98 09/10/18 14:20 98.2 66 18 153/69 (97) 99 09/10/18 14:11 144/63 09/10/18 12:00 60 09/10/18 12:00 98.0 63 18 144/63 (90) 99 Intake and Output 09/10/18 09/11/18 18:59 06:59 Intake Total 1000 ml Balance 1000 ml Intake Oral 1000 ml # Voids 5 2 # Bowel Movements 1 Laboratory Tests 09/11/18 05:10: White Blood Count 6.8, Red Blood Count 4.27, Hemoglobin 11.7L, Hematocrit 35.5L , Mean Corpuscular Volume 83, Mean Corpuscular Hemoglobin 27.4, Mean Corpuscular Hemoglobin Concent 32.9, Red Cell Distribution Width 12.8, Platelet Count 221, Mean Platelet Volume 7.1, Neutrophils (%) (Auto) 57.1, Lymphocytes (% ) (Auto) 28.5, Monocytes (%) (Auto) 7.7, Eosinophils (%) (Auto) 5.5H, Basophils (%) (Auto) 1.2, Sodium Level 138, Potassium Level 4.0, Chloride Level 104, Carbon Dioxide Level 23, Anion Gap 11, Blood Urea Nitrogen 40H, Creatinine 1.7H , Estimat Glomerular Filtration Rate , Glucose Level 204H, Uric Acid 10.2H, Calcium Level 8.4L, Phosphorus Level 4.5, Magnesium Level 2.0, Total Bilirubin 0.2, Direct Bilirubin < 0.1, Aspartate Amino Transf (AST/SGOT) 14L, Alanine Aminotransferase (ALT/SGPT) 14, Alkaline Phosphatase 89, Total Protein 7.4, Albumin 2.9L Height (Feet): 5 Height (Inches): 5.00 Weight (Pounds): 151 General Appearance: no apparent distress Pacheco Jansen MD September 11, 2018 10:18
--- NOTE | 2018-09-11 11:41 | NUR ---
Social Service Note SW completed letter for [employer] indicating patient's hospitalization. Letter provided to charge nurse.
--- NOTE | 2018-09-11 11:52 | Pulmonology Progress Note ---
Assessment/Plan Problems: (1) Acute encephalopathy (2) ATN (acute tubular necrosis) (3) History of hypertension (4) Post PTCA (5) Diabetes mellitus (6) CAD (coronary artery disease) Assessment/Plan stress test in process symptomatic treatment f/u nephrology evaluation. Subjective ROS Limited/Unobtainable: No Constitutional: Reports: no symptoms HEENT: Repors: no symptoms Respiratory: Reports: no symptoms Allergies: Coded Allergies: PENICILLINS (Verified Allergy, Unknown, 09/10/18) Objective Last 24 Hour Vital Signs Date Time Temp Pulse Resp B/P (MAP) Pulse Ox O2 Delivery O2 Flow Rate FiO2 09/11/18 09:00 Room Air 09/11/18 08:00 52 09/11/18 08:00 96.0 53 19 155/58 (90) 97 09/11/18 05:57 134/57 09/11/18 04:00 56 09/11/18 04:00 98.2 55 20 134/57 (82) 96 09/11/18 00:00 66 09/11/18 00:00 97.0 68 20 161/67 (98) 94 09/10/18 22:55 181/79 09/10/18 21:48 187/69 09/10/18 21:00 Room Air 09/10/18 20:00 68 09/10/18 20:00 98.9 73 20 189/77 (114) 96 09/10/18 19:18 62 161/62 09/10/18 16:00 68 09/10/18 16:00 97.4 62 18 161/62 (95) 98 09/10/18 14:20 98.2 66 18 153/69 (97) 99 09/10/18 14:11 144/63 09/10/18 12:00 60 09/10/18 12:00 98.0 63 18 144/63 (90) 99 Intake and Output 09/10/18 09/11/18 19:00 07:00 Intake Total 1000 ml Balance 1000 ml Intake Oral 1000 ml # Voids 5 2 # Bowel Movements 1 General Appearance: WD/WN HEENT: normocephalic Respiratory/Chest: chest wall non-tender, lungs clear Breasts: no masses Cardiovascular: normal peripheral pulses, normal rate Abdomen: normal bowel sounds, soft, non tender Genitourinary: normal external genitalia Skin: no rash Neurologic/Psychiatric: industrial registered nurse II-XII grossly normal Laboratory Tests 09/11/18 05:10: White Blood Count 6.8, Red Blood Count 4.27, Hemoglobin 11.7L, Hematocrit 35.5L , Mean Corpuscular Volume 83, Mean Corpuscular Hemoglobin 27.4, Mean Corpuscular Hemoglobin Concent 32.9, Red Cell Distribution Width 12.8, Platelet Count 221, Mean Platelet Volume 7.1, Neutrophils (%) (Auto) 57.1, Lymphocytes (% ) (Auto) 28.5, Monocytes (%) (Auto) 7.7, Eosinophils (%) (Auto) 5.5H, Basophils (%) (Auto) 1.2, Sodium Level 138, Potassium Level 4.0, Chloride Level 104, Carbon Dioxide Level 23, Anion Gap 11, Blood Urea Nitrogen 40H, Creatinine 1.7H , Estimat Glomerular Filtration Rate , Glucose Level 204H, Uric Acid 10.2H, Calcium Level 8.4L, Phosphorus Level 4.5, Magnesium Level 2.0, Total Bilirubin 0.2, Direct Bilirubin < 0.1, Aspartate Amino Transf (AST/SGOT) 14L, Alanine Aminotransferase (ALT/SGPT) 14, Alkaline Phosphatase 89, Total Protein 7.4, Albumin 2.9L Current Medications Medications (Trade) Dose Ordered Sig/Nichole Route PRN Reason Start Time Stop Time Status Last Admin Dose Admin Acetaminophen (Tylenol) 650 mg Q6H PRN ORAL Mild Pain/Temp > 100.5 09/09/18 02:15 10/09/18 02:14 Allopurinol (Allopurinol) 300 mg DAILY ORAL 09/11/18 09:15 10/11/18 09:14 Amlodipine Besylate (Norvasc) 5 mg BID ORAL 09/09/18 18:00 10/09/18 20:59 09/10/18 19:18 Clonidine HCl (Catapres tab) 0.2 mg Q2H PRN ORAL For High Blood Pressure 09/09/18 20:30 10/09/18 20:29 09/10/18 22:55 Clopidogrel Bisulfate (Plavix) 75 mg DAILY ORAL 09/09/18 09:00 10/09/18 08:59 09/11/18 09:01 Dextrose (Dextrose 50%) 25 ml Q30M PRN IV Hypoglycemia 09/09/18 02:15 10/09/18 02:14 Dextrose (Dextrose 50%) 50 ml Q30M PRN IV Hypoglycemia 09/09/18 02:15 10/09/18 02:14 Docusate Sodium (Colace) 100 mg THREE TIMES A DAY ORAL 09/09/18 13:00 10/09/18 12:59 09/10/18 19:18 Folic Acid (Folate) 2 mg DAILY ORAL 09/10/18 12:00 10/10/18 11:59 09/11/18 09:03 Heparin Sodium (Porcine) (Heparin 5000 units/ml) 5,000 units EVERY 12 HOURS SUBQ 09/09/18 09:00 10/09/18 08:59 Hydralazine HCl (Apresoline) 50 mg Q8HR ORAL 09/10/18 14:00 10/09/18 13:59 09/11/18 05:57 Insulin Aspart (NovoLOG) BEFORE MEALS AND HS SUBQ 09/09/18 06:30 10/09/18 06:29 09/11/18 06:04 Losartan Potassium (Cozaar) 50 mg DAILY ORAL 09/09/18 09:00 10/09/18 08:59 09/10/18 08:05 Morphine Sulfate (Morphine Sulfate) 2 mg Q4H PRN IVP For Pain 09/09/18 02:15 09/16/18 02:14 Pantoprazole (Protonix) 40 mg EVERY 12 HOURS ORAL 09/09/18 12:15 10/09/18 12:14 09/11/18 09:00 Regadenoson (Lexiscan) 0.4 mg ONCE PRN IV STRESS TEST 09/10/18 15:15 09/11/18 23:59 Donald Walters MD September 11, 2018 11:52
[2018-09-11 12:00] VITALS: BP 157/59
--- NOTE | 2018-09-11 13:53 | Cardiac Electrophysiology PN ---
Assessment/Plan Assessment/Plan 1. Nonsustained ventricular tachycardia and syncope. The patient is already ruled out for myocardial infarction. Echocardiogram showed normal left ventricular systolic function and no aortic stenosis. EKG did not show any acute ischemic changes. Nuclear stress test pwnding today to R/O ischemia. 2. Hypertension. On hydralazine 50 mg every 8 hours and Norvasc 5 mg b.i.d. as well as losartan 50 mg daily. 3. Diabetes. On insulin. Subjective Subjective Scheduled for stress est at 2 today. Objective Last 24 Hour Vital Signs Date Time Temp Pulse Resp B/P (MAP) Pulse Ox O2 Delivery O2 Flow Rate FiO2 09/11/18 12:00 97.8 54 18 157/59 (91) 97 09/11/18 12:00 53 09/11/18 12:00 97.8 54 18 157/59 (91) 97 09/11/18 09:00 Room Air 09/11/18 08:00 52 09/11/18 08:00 96.0 53 19 155/58 (90) 97 09/11/18 05:57 134/57 09/11/18 04:00 56 09/11/18 04:00 98.2 55 20 134/57 (82) 96 09/11/18 00:00 66 09/11/18 00:00 97.0 68 20 161/67 (98) 94 09/10/18 22:55 181/79 09/10/18 21:48 187/69 09/10/18 21:00 Room Air 09/10/18 20:00 68 09/10/18 20:00 98.9 73 20 189/77 (114) 96 09/10/18 19:18 62 161/62 09/10/18 16:00 68 09/10/18 16:00 97.4 62 18 161/62 (95) 98 09/10/18 14:20 98.2 66 18 153/69 (97) 99 09/10/18 14:11 144/63 Intake and Output 09/10/18 09/11/18 19:00 07:00 Intake Total 1000 ml Balance 1000 ml Intake Oral 1000 ml # Voids 5 2 # Bowel Movements 1 Laboratory Tests Test 09/11/18 05:10 White Blood Count 6.8 K/UL (4.8-10.8) Red Blood Count 4.27 M/UL (4.20-5.40) Hemoglobin 11.7 G/DL (12.0-16.0) L Hematocrit 35.5 % (37.0-47.0) L Mean Corpuscular Volume 83 FL (80-99) Mean Corpuscular Hemoglobin 27.4 PG (27.0-31.0) Mean Corpuscular Hemoglobin Concent 32.9 G/DL (32.0-36.0) Red Cell Distribution Width 12.8 % (11.6-14.8) Platelet Count 221 K/UL (150-450) Mean Platelet Volume 7.1 FL (6.5-10.1) Neutrophils (%) (Auto) 57.1 % (45.0-75.0) Lymphocytes (%) (Auto) 28.5 % (20.0-45.0) Monocytes (%) (Auto) 7.7 % (1.0-10.0) Eosinophils (%) (Auto) 5.5 % (0.0-3.0) H Basophils (%) (Auto) 1.2 % (0.0-2.0) Sodium Level 138 MMOL/L (136-145) Potassium Level 4.0 MMOL/L (3.5-5.1) Chloride Level 104 MMOL/L (98-107) Carbon Dioxide Level 23 MMOL/L (21-32) Anion Gap 11 mmol/L (5-15) Blood Urea Nitrogen 40 mg/dL (7-18) H Creatinine 1.7 MG/DL (0.55-1.30) H Estimat Glomerular Filtration Rate mL/min (>60) Glucose Level 204 MG/DL (74-106) H Uric Acid 10.2 MG/DL (2.6-7.2) H Calcium Level 8.4 MG/DL (8.5-10.1) L Phosphorus Level 4.5 MG/DL (2.5-4.9) Magnesium Level 2.0 MG/DL (1.8-2.4) Total Bilirubin 0.2 MG/DL (0.2-1.0) Direct Bilirubin < 0.1 MG/DL (0.0-0.3) Aspartate Amino Transf (AST/SGOT) 14 U/L (15-37) L Alanine Aminotransferase (ALT/SGPT) 14 U/L (12-78) Alkaline Phosphatase 89 U/L (46-116) Total Protein 7.4 G/DL (6.4-8.2) Albumin 2.9 G/DL (3.4-5.0) L Objective HEAD AND NECK: No jugular venous distention. LUNGS: Clear. CARDIOVASCULAR: Regular S1 and S2 with no gallop or murmur. ABDOMEN: Soft. EXTREMITIES: No pitting edema. Rogers Schreiber MD September 11, 2018 13:53
--- NOTE | 2018-09-11 13:53 | Diagnostic Imaging Report ---
Indication: Syncope Technique: The head was imaged in a 1.5 Ruth magnet. Sequences obtained include sagittal and axial T1 FLAIR, axial T2 fast spin echo with fat saturation, axial T2 FLAIR, diffusion and ADC map. Comparison: None Findings: There is mild prominence of the sulci, ventricles, and basal cisterns consistent with atrophy. Mild, nonspecific T2 hyperintensity noted within white matter. This may be due to chronic small vessel disease. There is no restricted diffusion. Maya-white differentiation is normal. There is no mass effect, midline shift, edema, or hemorrhage. There are no abnormal extra-axial or intra-axial fluid collections. The corpus callosum and sella are unremarkable. The brainstem and cerebellum are unremarkable. Bone marrow signal within the visualized osseous structures appears age appropriate and unremarkable otherwise. There is abnormal signal within some of the paranasal sinuses with a fluid retention cyst in the right maxillary sinus. Impression: No acute intracranial findings. Mild atrophy and evidence of chronic small vessel disease involving white matter tracts. Inflammatory sinus disease
[2018-09-11] MEDS ORDERED: APRESOLINE50 MG ORAL (14:13)
[2018-09-11] MEDS ORDERED: NORVASC5 MG ORAL (14:13)
[2018-09-11] MEDS ORDERED: PLAVIX75 MG ORAL (14:13)
--- NOTE | 2018-09-11 14:47 | NUR ---
*-* INSURANCE *-* ALL CLINICALS AND REVIEWS HAVE BEEN FAXED TO: [employer] #[id number] STEPHANIM:RACHEL TEL: [phone] FAX: [phone]
--- NOTE | 2018-09-11 14:48 | General Progress Note ---
Assessment/Plan Problem List: (1) Renal failure (ARF), acute on chronic ICD Codes: N17.9 - Acute kidney failure, unspecified; N18.9 - Chronic kidney disease, unspecified SNOMED: 646246952 (2) Syncope ICD Codes: R55 - Syncope and collapse SNOMED: 749658347 Qualifiers: Qualified Codes: R55 - Syncope and collapse (3) Diabetes mellitus ICD Codes: E11.9 - Type 2 diabetes mellitus without complications SNOMED: 61405050 Status: stable, progressing Assessment/Plan: cardio neuro f/u bs control dc if clear Subjective Constitutional: Reports: weakness Allergies: Coded Allergies: PENICILLINS (Verified Allergy, Unknown, 09/10/18) All Systems: reviewed and negative except above Subjective calm in bed no complaints Objective Last 24 Hour Vital Signs Date Time Temp Pulse Resp B/P (MAP) Pulse Ox O2 Delivery O2 Flow Rate FiO2 09/11/18 12:00 97.8 54 18 157/59 (91) 97 09/11/18 12:00 53 09/11/18 12:00 97.8 54 18 157/59 (91) 97 09/11/18 09:00 Room Air 09/11/18 08:00 52 09/11/18 08:00 96.0 53 19 155/58 (90) 97 09/11/18 05:57 134/57 09/11/18 04:00 56 09/11/18 04:00 98.2 55 20 134/57 (82) 96 09/11/18 00:00 66 09/11/18 00:00 97.0 68 20 161/67 (98) 94 09/10/18 22:55 181/79 09/10/18 21:48 187/69 09/10/18 21:00 Room Air 09/10/18 20:00 68 09/10/18 20:00 98.9 73 20 189/77 (114) 96 09/10/18 19:18 62 161/62 09/10/18 16:00 68 09/10/18 16:00 97.4 62 18 161/62 (95) 98 Intake and Output 09/10/18 09/11/18 19:00 07:00 Intake Total 1000 ml Balance 1000 ml Intake Oral 1000 ml # Voids 5 2 # Bowel Movements 1 Laboratory Tests 09/11/18 05:10: White Blood Count 6.8, Red Blood Count 4.27, Hemoglobin 11.7L, Hematocrit 35.5L , Mean Corpuscular Volume 83, Mean Corpuscular Hemoglobin 27.4, Mean Corpuscular Hemoglobin Concent 32.9, Red Cell Distribution Width 12.8, Platelet Count 221, Mean Platelet Volume 7.1, Neutrophils (%) (Auto) 57.1, Lymphocytes (% ) (Auto) 28.5, Monocytes (%) (Auto) 7.7, Eosinophils (%) (Auto) 5.5H, Basophils (%) (Auto) 1.2, Sodium Level 138, Potassium Level 4.0, Chloride Level 104, Carbon Dioxide Level 23, Anion Gap 11, Blood Urea Nitrogen 40H, Creatinine 1.7H , Estimat Glomerular Filtration Rate , Glucose Level 204H, Uric Acid 10.2H, Calcium Level 8.4L, Phosphorus Level 4.5, Magnesium Level 2.0, Total Bilirubin 0.2, Direct Bilirubin < 0.1, Aspartate Amino Transf (AST/SGOT) 14L, Alanine Aminotransferase (ALT/SGPT) 14, Alkaline Phosphatase 89, Total Protein 7.4, Albumin 2.9L Height (Feet): 5 Height (Inches): 5.00 Weight (Pounds): 151 General Appearance: alert EENT: normal ENT inspection Neck: normal alignment Cardiovascular: normal peripheral pulses, normal rate, regular rhythm Respiratory/Chest: chest wall non-tender, lungs clear, normal breath sounds Abdomen: normal bowel sounds, non tender, soft Extremities: normal inspection Edema: no edema noted Arm (L), no edema noted Arm (R), no edema noted Leg (L), no edema noted Leg (R), no edema noted Pedal (L), no edema noted Pedal (R), no edema noted Generalized Neurologic: responsive, motor weakness Skin: normal pigmentation, warm/dry Kunal WingBreanne DO September 11, 2018 14:48
[2018-09-11 16:00] VITALS: BP 168/75
--- NOTE | 2018-09-11 16:29 | NUR ---
NM Myocardial Perfusion Scan complete.
[2018-09-11 17:13] VITALS: BP 156/78
--- NOTE | 2018-09-11 18:02 | NUR ---
NURSE NOTES: left a message to dr kirk regarding patient wants to go home and no result yet for stress test. awaits callback and order as of this time.
--- NOTE | 2018-09-11 19:15 | NUR ---
NURSE NOTES: Received report from WILLIAM Todd. Patient is stable showing no signs of acute distress. Respiration even and non labored on room air. Denies any pain or discomfort. Patient is cleared for dc to home per MD. bus monitor and IV line off from the patient. Discharge instructions provided. Advised patient to see the primary doctor within a week. Patient is picked up by the son.
--- NOTE | 2018-09-12 11:50 | NUR ---
*-* INSURANCE *-* UPDATED CLINICALS HAVE BEEN FAXED TO: [employer] #[id number] STEPHANIM:RACHEL TEL: [phone] FAX: [phone]
--- NOTE | 2018-09-12 12:25 | Diagnostic Imaging Report ---
Indication: chest pain Technique: The study was conducted under the supervision of a property claims manager. Dolbutamine administration followed by intravenous administration of 28.9 mCi of technetium 99m Myoview was performed. Three plane SPECT imaging of the heart was then performed. A resting study was performed as part of the one-day protocol with 11 mCi of technetium 99m myoview injected intravenously at that time. Three plane SPECT imaging of the heart was obtained. Comparison: None Clinical data: Resting heart rate: 61. Peak heart rate: 118. (85% maximum predicted heart rate 124) Resting blood pressure: 164/70. Peak blood pressure: 213/90. No significant EKG changes identified. Patient experienced palpitations. 1. Clinical response: Non ischemic 2. Electrocardiographic response: Non ischemic Findings: The myocardial perfusion scan demonstrates no fixed or reversible perfusion defects. LVEF estimated at 73%. IMPRESSION: Negative myocardial perfusion scan. No evidence of myocardial ischemia.
--- NOTE | 2018-09-12 12:35 | Discharge Summary ---
Discharge Summary Discharge Summary _ DATE OF ADMISSION: 09/08/2018 DATE OF DISCHARGE: 09/11/2018 DISCHARGED BY: Dr. Kunal Wing CONSULTANTS: Dr. Rogers Harvey [facility] H[facility]PITAL COURSE: Patient is a 72-year-old female, who was sitting and apparently had a syncopal episode witnessed by the family. She complained of headache and neck pain. She has medical history significant for renal failure, AR/CAD with stent and lower extremity pain. EMS report stated glucose was 190 and she had normal EKG. She denied fever or chills. There was no nausea or vomiting. Patient's stroke screen was negative per paramedics. There was no numbness or unilateral weakness. On evaluation at the ED, vital signs were stable. Blood work did not show any leukocytosis. Hemoglobin and hematocrit were stable. Troponin was negative. proBNP was 380. EKG did not show any acute injury. Electrolytes were normal. Creatinine was elevated to 2.1, BUN 42. Chest x-ray showed interstitial densities. Mild CHF. Had CT did not show any acute intracranial bleed, mass- effect or edema. There was mild atrophy of the brain and nonspecific white matter hypoattenuation due to chronic small vessel disease. She was then admitted for evaluation of syncope and renal failure. Management Advisor was consulted for evaluation of renal failure. Patient has acute with underlying chronic kidney disease. On telemetry. Patient had a run of nonsustained V. tach 6 beats. Clinical Application Manager was consulted. Electrolytes were repleted. She was given IV hydration. Cardiac enzymes were negative.. Echocardiogram showed ejection fraction of 60 to 65%. There was no aortic stenosis. EKG did not show any ischemic changes. She was given hydralazine, losartan and Norvasc. Neurologist was consulted. Patient denied any new focal weakness or paresthesia. At baseline she had a bad right knee and uses cane for walking. She was placed on frequent neuro checks. Brain MRI did not show any acute intracranial findings. Renal function improved. IV fluids were discontinued. Uric acid was elevated. She was started on allopurinol. She underwent nuclear stress test. She was eventually discharged home. FINAL DIAGNOSES: Nonsustained ventricular tachycardia and syncope Acute on chronic renal failure Diabetes mellitus, out of control Diabetic nephropathy Hypertension Acute encephalopathy Hypomagnesemia with secondary hypocalcemia Coronary artery disease Dehydration Asthma DISPOSITION: Patient was discharged home. DISCHARGE MEDICATIONS: Refer to Discharge Medication List. DISCHARGE INSTRUCTIONS: Follow-up in a week. I have been assigned to complete a discharge summary on this account, I was not involved with the patient's management. Lilly Vazquez NP September 12, 2018 12:35
--- NOTE | 2018-09-12 20:45 | Cardiology Report ---
APPROVED REPORT EXAM: Two-dimensional and M-mode echocardiogram with Doppler and color Doppler. INDICATION Congestive Heart Failure M-Mode DIMENSIONS IVSd0.6 (0.7-1.1cm)Left Atrium (MM)2.1 (1.6-4.0cm) LVDd3.9 (3.5-5.6cm)Aortic Root3.1 (2.0-3.7cm) PWd1.0 (0.7-1.1cm)Aortic Cusp Exc.1.7 (1.5-2.0cm) IVSs1.5 cm LVDs3.9 (2.5-4.0cm) PWs1.0 cm Normal left ventricular chamber size, systolic function and wall motion. Left ventricular ejection fraction estimated to be 60-65%. Mild left ventricular hypertrophy by 2-D. No evidence of pericardial effusion. All other cardiac chamber sizes are within normal limits. Aortic valve calcification with normal cusp excursion . Mildly thickened mitral valve leaflets with normal excursion. Mild mitral annulus and aortic root calcification. Pulmonic valve not well visualized. IVC at normal size with physiologic collapse . A color flow and spectral Doppler study was performed and revealed: Trace aortic insufficiency . Mitral inflow indicates normal left ventricular diastolic function. Trace mitral regurgitation. Trace tricuspid regurgitation. Tricuspid systolic velocities suggests peak right ventricular systolic pressure of 25mmHg.
== END 2018-09-11 19:15 | disposition home or self-care (01) | DRG 201 ==
LOC: EDBD 20:43 → EMR 20:58 → 2E 23:34 → EDBEDREQ 09-09 00:13
DX: I47.2 Ventricular tachycardia (principal); N17.9 Acute kidney failure, unspecified; G93.40 Encephalopathy, unspecified; E11.22 Type 2 diabetes mellitus with diabetic chronic kidney disease; R55 Syncope and collapse; I25.2 Old myocardial infarction; I25.10 Atherosclerotic heart disease of native coronary artery without angina pectoris; Z95.5 Presence of coronary angioplasty implant and graft; I12.9 Hypertensive chronic kidney disease with stage 1 through stage 4 chronic kidney disease, or unspecified chronic kidney disease; N18.9 Chronic kidney disease, unspecified; E83.42 Hypomagnesemia; E83.51 Hypocalcemia; E86.0 Dehydration; J45.909 Unspecified asthma, uncomplicated; E11.65 Type 2 diabetes mellitus with hyperglycemia; Z88.0 Allergy status to penicillin; Z79.4 Long term (current) use of insulin
CPT/HCPCS: 36415; 70450; 70551; 71045; 78452; 80048; 80053; 80061; 80076; 81001; 82550; 82607; 82728; 82746; 82962; 82977; 83036; 83540; 83550; 83735; 83880; 84100; 84300; 84443; 84484; 84550; 85025; 85610; 85730; 86140; 86850; 86900; 86901; 93005; 93017; 93306; 96361; 96374; 99285; J1815; J2785